=== PATIENT | male | born 1950 | race Two or more races ===

== ENCOUNTER 2024-02-29 14:18 | Inpatient (IN) | payer OTHER ==
[~2024-02-29] VITALS: Ht 162.6 cm; Wt 59.5 kg
[~2024-02-29 14:18] MED LIST: GLYB5TAB8 PO; INSU70IN9 SC
[2024-02-29] MEDS ORDERED: GLIP10TA9 PO (15:53)
[2024-02-29] MEDS ORDERED: SITA100T7 PO (15:53)
[2024-02-29] MEDS ORDERED: METF-370 PO (15:53)
[2024-02-29] MEDS ORDERED: LISI20TA56 PO (15:53)
[2024-02-29 16:00] VITALS: O2SAT 99
[2024-02-29] MEDS: ASPirin 81 mg TAB PO ONE (16:07)
[2024-02-29 16:21] LABS: Basophils # (auto) 0.1 10 ^3/uL (0-0.2); Basophils % (auto) 0.5 % (0.0-2.0); Eosinophils # (auto) 0.3 10 ^3/uL (0-0.8); Eosinophils % (auto) 3.2 % (0.0-7.0); Hematocrit 40.3 % (41.0-53.0); Hemoglobin 13.6 g/dL (13.5-17.5); Lymphocytes % (auto) 20.3 % (10.0-50.0); Mean Corpuscular Hemoglobin 30.3 pg (28.0-32.0); Mean Corpuscular Hgb Conc. 33.7 g/dL (32.0-36.0); Mean Corpuscular Volume 89.9 fL (80.0-100.0); Monocytes # (auto) 0.8 10 ^3/uL (0-1.3); Monocytes % (auto) 8.2 % (0.0-12.0); Neutrophils # (auto) 6.7 10 ^3/uL (1.6-8.6); Neutrophils % (auto) 67.8 % (37.0-80.0); Nucleated Red Blood Cells % 0.1 %; Red Blood Cells 4.49 10^6/uL (4.5-5.90); Red Cell Distribution Width 14.5 % (11.8-14.3); White Blood Cell 9.9 10^3/uL (4.4-10.8)
[2024-02-29 16:46] LABS: Alanine Aminotransferase 19 U/L (7-40); Albumin 4.5 g/dL (3.2-4.8); Alkaline Phosphatase 65 U/L (46-116); Anion Gap 9 (5-15); Aspartate Aminotransferase 12 U/L (13-40); BUN/Creatinine Ratio 16.1 (10.0-20.0); Bilirubin, Total 0.8 mg/dL (0.2-1.0); Blood Urea Nitrogen 24 mg/dL (9-23); Calcium 9.7 mg/dL (8.7-10.4); Carbon Dioxide 24 mmol/L (20-30); Chloride 104 mmol/L (98-107); Magnesium 1.9 mg/dL (1.6-2.6); Potassium 4.9 mmol/L (3.5-5.1); Sodium 137 mmol/L (136-145)
[2024-02-29 16:58] LABS: Glucose 145 mg/dL (74-106)
[2024-02-29] MEDS: CLOPIDOGREL BISULFATE 75 MG TAB PO ONE ×2 (17:18→17:45)
[2024-02-29 17:26] LABS: INR 1.03 (0.9-1.15); Partial Thromboplastin Time 29.3 SEC (24.5-34.5); Prothrombin Time 10.9 sec (9.3-11.8)
[2024-02-29] MEDS ORDERED: HYDROmorphone HCL 2 MG/ML VL/or syr IV PRN (17:45)
[2024-02-29] MEDS ORDERED: ACETAMINOPHEN 325 MG TAB PO PRN (17:45)
[2024-02-29] MEDS: LACTATED RINGER'S 1,000 ML IV ONE (17:45)
[2024-02-29] MEDS ORDERED: DEXTROSE (50%) 50ML SYRG IV PRN (17:45)
[2024-02-29] MEDS ORDERED: ONDANSETRON HCL 4 MG/2 ML VIAL IV PRN (17:45)
[2024-02-29] MEDS ORDERED: DOCUSATE SOD 100 MG CAP PO PRN (17:45)
[2024-02-29] MEDS ORDERED: HYDROcodone-ACET 5/325MG TAB PO PRN (17:45)
[2024-02-29] MEDS: INSULIN 70/30 1unit/0.01ml Susp (100units/ml) SC SCH (18:00)
[2024-02-29 18:10] LABS: Triglycerides 129 mg/dL (< 150)
[2024-02-29 18:11] LABS: LDL Cholesterol 79 mg/dL (< 100)
[2024-02-29 18:12] LABS: Cholesterol 125 mg/dL (< 200); HDL Cholesterol 34 mg/dL (40-59)
[2024-02-29] MEDS: ATORVASTATIN 20 MG TAB PO ONE (18:38)
[2024-02-29 19:37] VITALS: PULSE 86; RESP 14; O2SAT 96
[2024-02-29] MEDS: InsuLIN REG 1unit/0.01ml Soln (100units/ml) SC SCH (22:00)
[2024-02-29] MEDS: SODIUM CHLOR 0.9% PF (SALINE LOCK) 10ML VIAL/SYR IV SCH (22:06)
[2024-02-29] MEDS: ACCU-CHEK COMFORT CURVE STRIP VI SCH (22:12)
[2024-02-29 23:25] VITALS: BP 139/66; PULSE 69; TEMP 98; O2SAT 98
[2024-03-01] VITALS (7 sets, daily range): BP systolic 129–154; BP diastolic 62–81; PULSE 60–83; RESP 18–19; TEMP 97.6–98.7; O2SAT 91–100
[2024-03-01 10:10] LABS: Basophils # (auto) 0.1 10 ^3/uL (0-0.2); Basophils % (auto) 0.8 % (0.0-2.0); Eosinophils # (auto) 0.3 10 ^3/uL (0-0.8); Eosinophils % (auto) 3.2 % (0.0-7.0); Hematocrit 40.1 % (41.0-53.0); Hemoglobin 13.4 g/dL (13.5-17.5); Lymphocytes # (auto) 1.6 10 ^3/uL (0.4-5.4); Lymphocytes % (auto) 17.6 % (10.0-50.0); Mean Corpuscular Hemoglobin 30.1 pg (28.0-32.0); Mean Corpuscular Hgb Conc. 33.4 g/dL (32.0-36.0); Mean Corpuscular Volume 89.9 fL (80.0-100.0); Monocytes # (auto) 0.7 10 ^3/uL (0-1.3); Neutrophils # (auto) 6.3 10 ^3/uL (1.6-8.6); Neutrophils % (auto) 70.4 % (37.0-80.0); Red Blood Cells 4.46 10^6/uL (4.5-5.90); Red Cell Distribution Width 14.4 % (11.8-14.3)
[2024-03-01 10:29] LABS: Anion Gap 5 (5-15); Calcium 9.8 mg/dL (8.7-10.4); Carbon Dioxide 29 mmol/L (20-30); Chloride 102 mmol/L (98-107); Potassium 4.3 mmol/L (3.5-5.1); Sodium 136 mmol/L (136-145)
[2024-03-01] MEDS: ENOXAPARIN SOD 40 MG/0.4 ML SYRINGE SC SCH (10:30)
[2024-03-01] MEDS: ASPirin-EC 81 mg tab PO SCH (10:30)
[2024-03-01 10:35] LABS: Glucose 214 mg/dL (74-106)
[2024-03-01 10:36] LABS: BUN/Creatinine Ratio 15.4 (10.0-20.0); Blood Urea Nitrogen 20 mg/dL (9-23)
[2024-03-01] MEDS ORDERED: CLOP75TA28 PO (18:32)
[2024-03-01] MEDS ORDERED: ATOR20TA PO (18:32)
[2024-03-01] MEDS ORDERED: ASPI-325 PO (18:32)
== END 2024-03-01 16:57 | disposition home or self-care (01) | DRG 683 ==
LOC: ER 14:18 → TELE 17:37 → TELE-WESTW 23:25
PROVIDERS: ADMIT Internal Medicine Pulmonary Disease; ATTEND Internal Medicine Pulmonary Disease
DX: N17.0 Acute kidney failure with tubular necrosis (principal); G45.9 Transient cerebral ischemic attack, unspecified; J84.9 Interstitial pulmonary disease, unspecified; E11.9 Type 2 diabetes mellitus without complications; I10 Essential (primary) hypertension; Z90.49 Acquired absence of other specified parts of digestive tract; Z79.82 Long term (current) use of aspirin
CPT/HCPCS: 36415; 70450; 70545; 70547; 70551; 71045; 80048; 80053; 80061; 82962; 83036; 83735; 83880; 84484; 85025; 85610; 85730; 93005; 93306; 93886; 99291; G0378

== ENCOUNTER 2024-07-06 19:40 | Inpatient (IN) | payer OTHER ==
[~2024-07-06] VITALS: Ht 162.6 cm; Wt 71.0 kg
[~2024-07-06 19:40] MED LIST changes: +ASPI-325 PO; +ATOR20TA PO; +CLOP75TA28 PO; +GLIP10TA9 PO; -GLYB5TAB8 PO; +LISI20TA56 PO; +METF-370 PO; +SITA100T7 PO
--- NOTE | 2024-07-06 20:31 | ED.PDOC ---
SOB-HPI HPI Comments 73-year-old male who came to ER for shortness of breath. Patient does have history of diabetes. States for over a week patient has been having dry productive cough, with progressively worsening shortness of breath. Noted shortness of breath especially when patient is lying in a supine position. Denies any fever. Upon arrival patient was saturating 76% on room air, with a blood pressure 164/78 mm Hg Chief Complaint: Shortness of Breath Time Seen by MD: 20:30 Reviewed notes: Nurses Notes Information Source: Patient, Relative Mode of Arrival: Ambulatory Severity: Moderate Timing: Days Duration: Intermittent Context: At Rest, With Light Exertion PE Risk Factors: None History of: None Prehospital treatment: None Modifying Factors: Nothing Associated Signs and Symptoms: Cough If cough with SOB: Non-Productive Past Medical History PAST MEDICAL HISTORY: DM Surgical History: Cholecystectomy, Tonsillectomy Family History Family History: Reviewed,noncontributory to illness Social History Smoker: Non-Smoker Alcohol: Denies ETOH Use Drugs: Denies Drug Use Lives In: Home Constitutional: denies: chills, diaphoresis, fatigue, fever, malaise, sweats, weakness, others EENTM: denies: blurred vision, double vision, ear bleeding, ear discharge, ear drainage, ear pain, ear ringing, eye pain, eye redness, hearing loss, mouth pain, mouth swelling, nasal discharge, nose bleeding, nose congestion, nose pain, photophobia, tearing, throat pain, throat swelling, voice changes, others Respiratory: reports: cough, orthopnea, SOB at rest, shortness of breath, SOB with excertion; denies: hemoptysis, stridor, wheezing, others Cardiovascular: denies: chest pain, dizzy spells, diaphoresis, Dyspnea on exertion, edema, irregular heart beat, left arm pain, lightheadedness, palpitations, PND, syncope, others Gastrointestinal: denies: abdomen distended, abdominal pain, blood streaked bowels, constipated, diarrhea, dysphagia, difficulty swallowing, hematemesis, melena, nausea, poor appetite, poor fluid intake, rectal bleeding, rectal pain, vomiting, others Genitourinary: denies: burning, dysuria, flank pain, frequency, hematuria, incontinence, penile discharge, penile sore, pain, testicle pain, testicle swelling, urgency, others Neurological: denies: dizziness, fainting, headache, left sided numbness, left sided weakness, numbness, paresthesia, pre-existing deficit, right sided numbness, right sided weakness, seizure, speech problems, tingling, tremors, weakness, others Musculoskeletal: denies: back pain, gout, joint pain, joint swelling, muscle pain, muscle stiffness, neck pain, others Integumetry: denies: bruises, change in color, change in hair/nails, dryness, laceration, lesions, lumps, rash, wounds, others Allergic/Immunocompromised: denies: Difficulty Healing, Frequent Infections, Hives, Itching, others Hematologic/Lymphatic: denies: anemia, blood clots, easy bleeding, easy bruising, swollen glands, others Endocrine: denies: excessive hunger, excessive sweating, excessive thirst, excessive urination, flushing, intolerance to cold, intolerance to heat, unexplained weight gain, unexplained weight loss, others Psychiatric: denies: anxiety, bipolar disorder, depression, hopeless, panic disorder, schizophrenia, sleepless, suicidal, others Physical Exam General Appearance: No Apparent Distress, Normal HEENT: Normal ENT Inspection, Pharynx Normal, TMs Normal Neck: Full Range of Motion, Non-Tender, Normal, Normal Inspection Respiratory: Chest Non-Tender, Lungs Clear, No Accessory Muscle Use, No Respiratory Distress, Normal Breath Sounds Cardiovascular: No Edema, No JVD, No Murmur, No Gallop, Normal Peripheral Pulses, Regular Rate/Rhythm Breast Exam: Deferred Gastrointestinal: No Organomegaly, Non Tender, No Pulsatile Mass, Normal Bowel Sounds, Soft Genitalia: Deferred Pelvic: Deferred Rectal: Deferred Extremities: No calf tenderness, Normal capillary refill, Normal inspection, Normal range of motion, Non-tender, No pedal edema Musculoskeletal : Apperance: Normal Neurologic: Alert, research and development manager II-XII nml as Tested, No Motor Deficits, Normal Affect, Normal Mood, No Sensory Deficits Cerebellar Function: Normal Reflexes: Normal Skin: Dry, Normal Color, Warm Lymphatic: No Adenopathy Was a procedure done? Was a procedure done?: No Differential Dx Differential Diagnosis: Asthma, Bronchitis, CHF, COPD, Myocardial infarction, Panic Attack, Pneumonia, Respiratory Distress, URI, Other (Influenza) X-Ray, Labs, Meds, VS Vital Signs Date Time Temp Pulse Resp B/P (MAP) Pulse Ox O2 Delivery O2 Flow Rate FiO2 07/06/24 19:58 98.0 103 20 164/78 (106) 99 Lab Test 07/06/24 20:21 07/06/24 19:48 Range/Units White Blood Count 8.0 4.4-10.8 10^3/uL Red Blood Count 4.47 L 4.5-5.90 10^6/uL Hemoglobin 13.4 L 13.5-17.5 g/dL Hematocrit 40.6 L 41.0-53.0 % Mean Corpuscular Volume 90.9 80.0-100.0 fL Mean Corpuscular Hemoglobin 30.0 28.0-32.0 pg Mean Corpuscular Hemoglobin Concent 33.0 32.0-36.0 g/dL Red Cell Distribution Width 14.6 H 11.8-14.3 % Platelet Count 164 140-450 10^3/uL Mean Platelet Volume 9.5 6.9-10.8 fL Neutrophils (%) (Auto) 66.3 37.0-80.0 % Lymphocytes (%) (Auto) 19.7 10.0-50.0 % Monocytes (%) (Auto) 9.4 0.0-12.0 % Eosinophils (%) (Auto) 4.0 0.0-7.0 % Basophils (%) (Auto) 0.6 0.0-2.0 % Neutrophils # (Auto) 5.3 1.6-8.6 10 ^3/uL Lymphocytes # (Auto) 1.6 0.4-5.4 10 ^3/uL Monocytes # (Auto) 0.8 0-1.3 10 ^3/uL Eosinophils # (Auto) 0.3 0-0.8 10 ^3/uL Basophils # (Auto) 0 0-0.2 10 ^3/uL Nucleated Red Blood Cells 0.0 % Sodium Level 137 136-145 mmol/L Potassium Level 4.8 3.5-5.1 mmol/L Chloride Level 99 98-107 mmol/L Carbon Dioxide Level 31 20-31 mmol/L Anion Gap 7 5-15 Blood Urea Nitrogen 19 9-23 mg/dL Creatinine 1.52 H 0.700-1.30 mg/dL Glomerular Filtration Rate Calc 47 >90 mL/min BUN/Creatinine Ratio 12.5 10.0-20.0 Serum Glucose 235 H 74-106 mg/dL Calcium Level 10.0 8.7-10.4 mg/dL Troponin I High Sensitivity 4 </=54 ng/L B-Type Natriuretic Peptide 49.29 0-100 pg/mL POC Glucose 222 H 70-106 mg/dl CHEST RADIOGRAPH FINDINGS: Lines and Tubes: None Lungs: Prominent interstitial markings in both lung bases. May represent developing infiltrates. Pleura: No effusion. No pneumothorax. Cardiomediastinal contours: Unremarkable Bones: Unremarkable IMPRESSION: 1. Possible developing bibasilar infiltrates. Left worse than right Time of 1ST Reevaluation: 20:28 Reevaluation 1ST: Unchanged Patient Education/Counseling: Diagnosis, Treatment Family Education/Counseling: Diagnosis, Treatment Departure 1 Departure Time of Disposition: 23:08 (Patient presented with acute shortness of breath concerning for acute on chronic COPD Exacerbation, Pneumonia, ACS, CHF, Pneumothorax. Less likely PE, Dissection. Patient does not appear septic at this time.Data: 1. I ordered and reviewed the result of at least 3 labs in cluding a CBC, BMP, and Troponin. 2. I independently interpreted the following tests: Chest X-ray shows a pneumonia.Risk:This patient has a high risk of morbidity due to further diagnostic testing or treatment and may suffer from respiratory or cardiac etiology . Workup reveals a pneumonia, patient will be started on antibiotics, admitted for further workup and possible expert cons ultation.) Impression: Primary Impression: Pneumonia Qualified Codes: J18.9 - Pneumonia, unspecified organism Additional Impression: Dyspnea Qualified Codes: R06.02 - Shortness of breath Disposition: ADMITTED INPATIENT Admit to: Med Surg Condition: Serious Critical Care Note Critical Care Time?: Yes (35 min-critical care time only) Critical care comment: Hypoxic Authorized and Performed by: Melvi Mullen MD Total critical care time: Approximately 35 minutes Due to a high probability of clinically significant, life threatening deterioration, the patient required my highest level of preparedness to intervene emergently and I personally spent this critical care time directly and personally managing the patient. This critical care time included obtaining a history; examining the patient; pulse oximetry; ordering and review of studies; arranging urgent treatment with development of a management plan; evaluation of patient's response to treatment; frequent reassessment; and, discussions with other providers. This critical care time was performed to assess and manage the high probability of imminent, life-threatening deterioration that could result in multi-organ failure. It was exclusive of separately billable procedures and treating other patients and teaching time. Please see my other sections and the rest of the note for further information on patient assessment and treatment. Stability Stability form required: No Heart Score Heart Score: Heart Score Response (Comments) Value History Moderate Suspicious 1 EKG Normal 0 Age >65 2 Risk Factors 1 or 2 risk factors 1 Troponin Normal limit 0 Total 4 I personally scribed for MELVI MULLEN MD [facility] on 07/06/24 at 20:31. Electronically submitted by Rickey Sanabria ([email or web address]). I personally scribed for MELVI MULLEN MD ([email or web address]) on 07/06/24 at 21:03. Electronically submitted by Rickey Sanabria ([email or web address]). MELVI MULLEN MD Jul 06, 2024 20:31
--- NOTE | 2024-07-06 20:37 | DVH ---
CHEST RADIOGRAPH Indication: sob Technique: Frontal and lateral view of the chest was obtained Comparison: None FINDINGS: Lines and Tubes: None Lungs: Prominent interstitial markings in both lung bases. May represent developing infiltrates. Pleura: No effusion. No pneumothorax. Cardiomediastinal contours: Unremarkable Bones: Unremarkable IMPRESSION: 1. Possible developing bibasilar infiltrates. Left worse than right
[2024-07-06 20:48] LABS: Basophils # (auto) 0 10 ^3/uL (0-0.2); Basophils % (auto) 0.6 % (0.0-2.0); Eosinophils # (auto) 0.3 10 ^3/uL (0-0.8); Hematocrit 40.6 % (41.0-53.0); Hemoglobin 13.4 g/dL (13.5-17.5); Lymphocytes # (auto) 1.6 10 ^3/uL (0.4-5.4); Lymphocytes % (auto) 19.7 % (10.0-50.0); Mean Corpuscular Volume 90.9 fL (80.0-100.0); Monocytes # (auto) 0.8 10 ^3/uL (0-1.3); Monocytes % (auto) 9.4 % (0.0-12.0); Neutrophils # (auto) 5.3 10 ^3/uL (1.6-8.6); Neutrophils % (auto) 66.3 % (37.0-80.0); Platelet Count (auto) 164 10^3/uL (140-450); Red Blood Cells 4.47 10^6/uL (4.5-5.90); Red Cell Distribution Width 14.6 % (11.8-14.3)
[2024-07-06 21:00] LABS: Chloride 99 mmol/L (98-107); Potassium 4.8 mmol/L (3.5-5.1); Sodium 137 mmol/L (136-145)
[2024-07-06 21:01] LABS: Anion Gap 7 (5-15); Carbon Dioxide 31 mmol/L (20-31)
[2024-07-06 21:06] LABS: BUN/Creatinine Ratio 12.5 (10.0-20.0); Blood Urea Nitrogen 19 mg/dL (9-23)
[2024-07-06 21:08] LABS: Glucose 235 mg/dL (74-106)
[2024-07-06] MEDS: VANCOMYCIN 1GM/250ML KIT 200 ML IV ONE (23:15)
[2024-07-07] VITALS (8 sets, daily range): BP systolic 105–153; BP diastolic 68–85; PULSE 74–98; RESP 16–22; TEMP 97.5–98.8; O2SAT 96–97
[2024-07-07] MEDS: AZITHROMYCIN 250 MG TAB PO ONE (00:38)
[2024-07-07] MEDS: CEFEPIME 2GM/50ML NS 50 ML IV ONE (02:14)
[2024-07-07 02:57] LABS: COVID19 ANTIGEN SOFIA FIA NEGATIVE (NEGATIVE)
[2024-07-07 02:58] LABS: Rapid Influenza A Negative (Negative); Rapid Influenza B Negative (Negative)
[2024-07-07] MEDS ORDERED: ACETAMINOPHEN 325 MG TAB PO PRN (03:30)
[2024-07-07] MEDS ORDERED: DEXTROSE (50%) 50ML SYRG IV PRN (03:30)
[2024-07-07] MEDS ORDERED: NITROGLYCERIN 0.4 MG SL TAB SL PRN (03:30)
[2024-07-07] MEDS ORDERED: DOCUSATE SOD 100 MG CAP PO PRN (03:30)
[2024-07-07] MEDS ORDERED: HYDROcodone-ACET 5/325MG TAB PO PRN (03:30)
[2024-07-07] MEDS ORDERED: ONDANSETRON HCL 4 MG/2 ML VIAL IV PRN (03:30)
[2024-07-07] MEDS ORDERED: MORPHINE SULFATE INJ 2 MG/ml SYRG IV PRN (03:30)
[2024-07-07] MEDS: SODIUM CHLORIDE 0.9% 1,000 ML IV SCH (03:40)
--- NOTE | 2024-07-07 03:44 | DVHHP2 ---
History of Present Illness Reason for Visit: Pneumonia, unspecified organism History of Present Illness The patient is a 73-year-old male with past medical history of diabetes, hypertension, and hyperlipidemia who presented to [facility] ED with complaint of shortness of breaths. Patient reports symptoms progressively get worse with productive cough, progressive shortness of breath on exertion,, when ambulating, getting worse that prompted this visit. Patient was seen and evaluated in the ED, laboratory data shows WBC 8.0, platelets 164, sodium 137, potassium 4.8, BUN 19, creatinine 1.52, glucose 235, troponin 4, BNP 49.29, blood pressure 155/84, heart rate 86, temperature 98.3 F, O2 saturation 98% on oxygen. Chest x-ray revealing developing bibasilar infiltrates, left worse than right. Patient was started on IV antibiotic regimen azithromycin, please see medication orders section in the computer. On my assessment, patient denied chest pain, no headache, no dizziness, no diaphoresis, no abdominal pain, no diarrhea, no nausea, no vomiting, no fever, no chills. Patient was admitted for further evaluation and medical management. Past Medical History DM, hypertension, hyperlipidemia Past Surgical History Cholecystectomy, Tonsillectomy Family History Reviewed, noncontributory to the management of this case. Past Social History The patient lives at home, denies smoking, alcohol or illicit drugs abuse. Review of Systems Constitutional: No: Fever, Chills, Sweats, Weakness, Malaise, Other Eyes: No: Pain, Vision change, Conjunctivae inflammation, Eyelid inflammation, Other, Redness ENT: No: Ear pain, Ear discharge, Nose pain, Nose discharge, Nose congestion, Mouth pain, Mouth swelling, Throat pain, Throat swelling, Other Respiratory: Cough, Shortness of breath, SOB with excertion, Other (SOB at rest.); No: Dry, Wheezing, Hemoptysis, Pleuritic Pain, Sputum, Wheezing Cardiovascular: Other (Dyspnea); No: Chest Pain, Palpitations, Orthopnea, Paroxysmal Noc. Dyspnea, Edema, Lt Headedness Gastrointestinal: No: Nausea, Vomiting, Abdominal Pain, Diarrhea, Constipation, Melena, Hematochezia, Other Genitourinary: No Dysuria, No Frequency, No Incontinence, No Hematuria, No Retention, No Other Musculoskeletal: No: other, neck pain, shoulder pain, arm pain, back pain, hand pain, leg pain, foot pain Skin: No: Rash, Lesions, Jaundice, Bruising, Other Neurological: No: Weakness, Numbness, Incoordination, Change in speech, Confusion, Seizures, Other Allergies: Coded Allergies: NO KNOWN ALLERGIES (Unverified , 10/21/10) Medications Current Medications Medications Dose Ordered Sig/Raghu Route Start Time Stop Time Status Last Admin Dose Admin Azithromycin 250 ml @ 125 mls/hr DAILY IV 07/07/24 10:00 UNV Exam Vital Signs Vital Signs Date Time Temp Pulse Resp B/P (MAP) Pulse Ox O2 Delivery O2 Flow Rate FiO2 07/07/24 01:55 Nasal Cannula* 2 28 07/07/24 01:05 98.3 86 20 155/84 (107) 98 98.3 General Appearance: Alert, Oriented X3, Cooperative, No acute distress HEENT: Atraumatic, PERRLA, EOMI, Mucous membr. moist/pink Respiratory: Normal air movement, Other (Diminished breath sounds) Cardiovascular: Regular rate, Normal S1, Normal S2, No murmurs Abdominal: Normal bowel sounds, Soft, No tenderness, No hepatospenomegaly, No masses Extremities: No clubbing, No cyanosis, No edema, Normal pulses, No tenderness/swelling Skin: No rashes, No breakdown, No significant lesion Neuro: Normal gait, Normal speech, Strength at 5/5 X4 ext, Normal tone, Sensation intact, Cranial nerves 3-12 NL, Reflexes 2+ Psych/Mental Status: Mental status NL, Mood NL Labs/Xrays Labs Test 07/07/24 01:06 07/07/24 00:46 07/06/24 20:21 07/06/24 19:48 Range/Units Troponin I High Sensitivity 5 </=54 ng/L Influenza Type A Antigen Negative Negative Influenza Type B Antigen Negative Negative SARS-CoV-2 Antigen (Rapid) Negative NEGATIVE White Blood Count 8.0 4.4-10.8 10^3/uL Red Blood Count 4.47 L 4.5-5.90 10^6/uL Hemoglobin 13.4 L 13.5-17.5 g/dL Hematocrit 40.6 L 41.0-53.0 % Mean Corpuscular Volume 90.9 80.0-100.0 fL Mean Corpuscular Hemoglobin 30.0 28.0-32.0 pg Mean Corpuscular Hemoglobin Concent 33.0 32.0-36.0 g/dL Red Cell Distribution Width 14.6 H 11.8-14.3 % Platelet Count 164 140-450 10^3/uL Mean Platelet Volume 9.5 6.9-10.8 fL Neutrophils (%) (Auto) 66.3 37.0-80.0 % Lymphocytes (%) (Auto) 19.7 10.0-50.0 % Monocytes (%) (Auto) 9.4 0.0-12.0 % Eosinophils (%) (Auto) 4.0 0.0-7.0 % Basophils (%) (Auto) 0.6 0.0-2.0 % Neutrophils # (Auto) 5.3 1.6-8.6 10 ^3/uL Lymphocytes # (Auto) 1.6 0.4-5.4 10 ^3/uL Monocytes # (Auto) 0.8 0-1.3 10 ^3/uL Eosinophils # (Auto) 0.3 0-0.8 10 ^3/uL Basophils # (Auto) 0 0-0.2 10 ^3/uL Nucleated Red Blood Cells 0.0 % Sodium Level 137 136-145 mmol/L Potassium Level 4.8 3.5-5.1 mmol/L Chloride Level 99 98-107 mmol/L Carbon Dioxide Level 31 20-31 mmol/L Anion Gap 7 5-15 Blood Urea Nitrogen 19 9-23 mg/dL Creatinine 1.52 H 0.700-1.30 mg/dL Glomerular Filtration Rate Calc 47 >90 mL/min BUN/Creatinine Ratio 12.5 10.0-20.0 Serum Glucose 235 H 74-106 mg/dL Calcium Level 10.0 8.7-10.4 mg/dL B-Type Natriuretic Peptide 49.29 0-100 pg/mL POC Glucose 222 H 70-106 mg/dl PATIENT: HEATHER ALAN ACCT: [id number] UNIT: [id number] : 1950 LOC: ER ROOM / BED: / AGE / SEX: 73 / M ADM STATUS: REG ER SERVICE 53 ORDERING PHYSICIAN: MELVI MARR MD PROCEDURE(s): CXR2 - CHEST TWO VIEWS ROUTINE REASON: sob ORDER NUMBER(s): [id number], ACCESSION NUMBER(s): [id number] CHEST RADIOGRAPH Indication: sob Technique: Frontal and lateral view of the chest was obtained Comparison: None FINDINGS: Lines and Tubes: None Lungs: Prominent interstitial markings in both lung bases. May represent developing infiltrates. Pleura: No effusion. No pneumothorax. Cardiomediastinal contours: Unremarkable Bones: Unremarkable IMPRESSION: 1. Possible developing bibasilar infiltrates. Left worse than right Assessment/Plan Assessment/Plan Shortness of breath Dyspnea Pneumonia, unspecified organism Diabetes mellitus with hyperglycemia Plan 1. Admit to telemetry unit 2. Breathing treatment 3. Pain control management 4. IV antibiotic management 5. Management of fluids and electrolytes 6. Consultation for hospitalist 7. Diagnostic test chest x-ray 8. DVT prophylaxis-on aspirin 9. Repeat labs CBC, CMP in a.m. 10. Home medication reviewed and reconciled 11. Continue with current medical management 12. Treatment plan discussed with patient and RN. Patient verbalized understanding. Plan discussed with: Patient, Other (RN) My Orders Orders - ANDRE PARRY DNP Procedure Category Date Status Time Complete Blood Count LAB 07/07/24 Transmitted 04:00 Comprehensive LAB 07/07/24 Transmitted Metabolic Panel 04:00 Azithromycin 500mg/ PHA 07/07/24 Logged 250ml (Zithromax 50 10:00 Ceftriaxone Ivpb PHA 07/07/24 Transmitted Rocephin 09:00 Aspirin Tablet PHA 07/07/24 Transmitted 10:00 Clopidogrel Bisulfate PHA 07/07/24 Transmitted (Plavix) 10:00 Atorvastatin (Lipitor) PHA 07/07/24 Transmitted 22:00 Consistent DIET 07/07/24 Transmitted Carb(Ccho)Diabetes Breakfast Glucose Blood PHA 07/07/24 Transmitted (Accu-Chek Comfort 07:00 Bedtime Insulin Scale PHA 07/07/24 Transmitted 22:00 Moderate Insulin Ss PHA 07/07/24 Transmitted 07:00 Dextrose 50% Syringe PHA 07/07/24 Transmitted 03:30 Admit ADMIT 07/07/24 Transmitted 03:22 Allergies DOTTY 07/07/24 Transmitted 03:22 Code Status CODE 07/07/24 Transmitted 03:22 0.9% Ns 1000 Ml PHA 07/07/24 Transmitted 03:30 Oxygen Per Hour RT 07/07/24 Transmitted 03:22 Hydrocodone-Acet PHA 07/07/24 Transmitted 5/325mg Tab ([place] 03:30 Ondansetron Hcl PHA 07/07/24 Transmitted (Zofran) 03:30 Docusate Sodium [facility] 07/07/24 Transmitted Capsule (Colace 03:30 Complete Blood Count LAB 07/08/24 Verified 04:00 Comprehensive LAB 07/08/24 Verified Metabolic Panel 04:00 Condition: Serious [facility] 07/07/24 Transmitted 03:22 Acetaminophen Tablet [facility] 07/07/24 Transmitted (Tylenol Tablet) 03:30 Bedrest With Bathroom [facility] 07/07/24 Transmitted Privileg 03:22 Sequential [facility] 07/07/24 Transmitted Compression Device Nitroglycerin [facility] 07/07/24 Transmitted Sublingual (Ntrostat 03:30 Morphine Sulfate [facility] 07/07/24 Transmitted Injection 03:30 Notify Md Of Changes [facility] 07/07/24 Transmitted From Base 03:22 Administration Assistant For [facility] 07/07/24 Transmitted 24 Hours 03:22 Emergency Dysrhythmia [facility] 07/07/24 Transmitted Protocol 03:22 Rhythm Strips Once [facility] 07/07/24 Transmitted Every Shift 03:22 Oxygen By Nasal 07/07/24 Transmitted Cannula 03:22 Problem List: (1) Shortness of breath (2) Dyspnea (3) Pneumonia, unspecified organism (4) Diabetes mellitus with hyperglycemia Date of Service: Jul 07, 2024 Billing Provider: ANDRE PARRY DNP Common Visit Codes: [id number] INP/OBS CARE (HIGH) ANDRE PARRY DNP Jul 07, 2024 03:44
[2024-07-07 05:14] LABS: Basophils # (auto) 0 10 ^3/uL (0-0.2); Basophils % (auto) 0.4 % (0.0-2.0); Eosinophils # (auto) 0.3 10 ^3/uL (0-0.8); Eosinophils % (auto) 3.6 % (0.0-7.0); Hematocrit 36.9 % (41.0-53.0); Hemoglobin 12.2 g/dL (13.5-17.5); Lymphocytes # (auto) 1.8 10 ^3/uL (0.4-5.4); Lymphocytes % (auto) 20.9 % (10.0-50.0); Mean Corpuscular Hemoglobin 29.9 pg (28.0-32.0); Mean Corpuscular Volume 90.4 fL (80.0-100.0); Monocytes # (auto) 0.7 10 ^3/uL (0-1.3); Monocytes % (auto) 8.4 % (0.0-12.0); Neutrophils # (auto) 5.7 10 ^3/uL (1.6-8.6); Neutrophils % (auto) 66.7 % (37.0-80.0); Nucleated Red Blood Cells % 0.1 %; Platelet Count (auto) 142 10^3/uL (140-450); Red Blood Cells 4.08 10^6/uL (4.5-5.90); Red Cell Distribution Width 14.3 % (11.8-14.3); White Blood Cell 8.6 10^3/uL (4.4-10.8)
[2024-07-07 06:09] LABS: Alanine Aminotransferase 19 U/L (7-40); Alkaline Phosphatase 50 U/L (46-116); Anion Gap 6 (5-15); Aspartate Aminotransferase 17 U/L (13-40); BUN/Creatinine Ratio 12.2 (10.0-20.0); Blood Urea Nitrogen 17 mg/dL (9-23); Calcium 9.4 mg/dL (8.7-10.4); Carbon Dioxide 28 mmol/L (20-31); Chloride 102 mmol/L (98-107); Potassium 4.4 mmol/L (3.5-5.1); Sodium 136 mmol/L (136-145)
[2024-07-07 06:10] LABS: Albumin 3.8 g/dL (3.2-4.8); Bilirubin, Total 0.8 mg/dL (0.2-1.0); Total Protein 6.2 g/dL (5.7-8.2)
[2024-07-07 06:11] LABS: Glucose 178 mg/dL (74-106)
[2024-07-07] MEDS: ACCU-CHEK COMFORT CURVE STRIP VI SCH (06:28)
[2024-07-07] MEDS: InsuLIN REG 1unit/0.01ml Soln (100units/ml) SC SCH ×2 (06:28→21:09)
[2024-07-07] MEDS: ASPirin 81 mg TAB PO SCH (08:53)
[2024-07-07] MEDS: CLOPIDOGREL BISULFATE 75 MG TAB PO SCH (08:53)
--- NOTE | 2024-07-07 13:05 | DVHPN2 ---
Subjective 73-year-old male admitted for pneumonia Changes from previous H/P or p: Changes Eyes: No Pain, No Vision change, No Conjunctivae inflammation, No Eyelid inflammation, No Other, No Redness ENT: No Ear pain, No Ear discharge, No Nose pain, No Nose discharge, No Nose congestion, No Mouth pain, No Mouth swelling, No Throat pain, No Throat swelling, No Other Cardiovascular: No Chest Pain, No Palpitations, No Orthopnea, No Paroxysmal Noc. Dyspnea, No Edema, No Lt Headedness; Other (Dyspnea) Respiratory: Cough; No Dry; Shortness of breath, SOB with excertion; No Wheezing, No Hemoptysis, No Pleuritic Pain, No Sputum; Other (SOB at rest.) Gastrointestinal: No Nausea, No Vomiting, No Abdominal Pain, No Diarrhea, No Constipation, No Melena, No Hematochezia, No Other Genitourinary: No Dysuria, No Frequency, No Incontinence, No Hematuria, No Retention, No Other Musculoskeletal: No other, No neck pain, No shoulder pain, No arm pain, No back pain, No hand pain, No leg pain, No foot pain Skin: No Rash, No Lesions, No Jaundice, No Bruising, No Other Objective Vitals Vital Signs Date Time Temp Pulse Resp B/P (MAP) Pulse Ox O2 Delivery O2 Flow Rate FiO2 07/07/24 09:48 98.8 86 18 105/68 (80) 96 98.8 07/07/24 08:00 Room Air* 0 21 Intake/Output Intake and Output 07/07/24 07:00 Intake Total 260 ml Output Total 600 ml Balance -340 ml IV Total 260 ml Output Urine Total 600 ml General Appearance: Alert, Oriented X3, Cooperative Lungs: Other (Bilateral rhonchi) Cardiovascular: Regular rate, Normal S1, Normal S2 Abdomen: Normal bowel sounds, Soft, No tenderness Extremities: No edema Medications Current Medications Medications Dose Ordered Sig/Raghu Route Start Time Stop Time Status Last Admin Dose Admin Azithromycin 250 ml @ 250 mls/hr Q24H IV 07/07/24 21:00 Ceftriaxone Sodium 50 ml @ 100 mls/hr Q24H IV 07/07/24 21:00 Aspirin 81 mg DAILY PO 07/07/24 10:00 07/07/24 08:53 81 MG Clopidogrel Bisulfate 75 mg DAILY PO 07/07/24 10:00 07/07/24 08:53 75 MG Atorvastatin Calcium 20 mg HS PO 07/07/24 22:00 Diagnostic Test (Pha) 1 strip ACHS 07/07/24 07:00 07/07/24 11:46 1 STRIP Insulin Human Regular HS SC 07/07/24 22:00 Insulin Human Regular AC SC 07/07/24 07:00 07/07/24 11:45 6 UNITS Dextrose 50 ml UD PRN IV 07/07/24 03:30 Sodium Chloride 1,000 ml @ 60 mls/hr [id number] IV 07/07/24 03:30 07/07/24 03:40 60 MLS/HR Acetaminophen/ Hydrocodone Bitart 1 tab Q4HP PRN PO 07/07/24 03:30 Ondansetron HCl 4 mg Q4HP PRN IV 07/07/24 03:30 Docusate Sodium 100 mg BIDPRN PRN PO 07/07/24 03:30 Acetaminophen 650 mg Q6HP PRN PO 07/07/24 03:30 Nitroglycerin 0.4 mg Q5MINP PRN SL 07/07/24 03:30 Morphine Sulfate 2 mg Q30M PRN IV 07/07/24 03:30 Laboratory Results Laboratory Tests 07/07/24 05:01 Chemistry Test 07/06/24 20:21 07/07/24 05:01 Calcium Level 10.0 mg/dL (8.7-10.4) 9.4 mg/dL (8.7-10.4) Albumin 3.8 g/dL (3.2-4.8) Total Protein 6.2 g/dL (5.7-8.2) Cardiac Markers Test 07/06/24 20:21 B-Type Natriuretic Peptide 49.29 pg/mL (0-100) LFT Test 07/07/24 05:01 Alanine Aminotransferase (ALT) 19 U/L (7-40) Alkaline Phosphatase 50 U/L (46-116) Aspartate Amino Transferase (AST) 17 U/L (13-40) Total Bilirubin 0.8 mg/dL (0.2-1.0) Assessment/Plan Assessment/Plan Bilateral pneumonia Acute hypoxic respiratory failure due to pneumonia Type 2 diabetes Hypertension Dyslipidemia Chronic kidney disease 07/07/2024: IV antibiotics Zithromax and Rocephin Resume the home medications including aspirin and Plavix Accu-Cheks Physical therapy Oxygen as needed Full code Advance directives discussed for 18 minutes Plan discussed with: Patient Date of Service: Jul 07, 2024 Billing Provider: ANIA HURST MD Common Visit Codes: [id number] INP/OBS CARE(HIGH) Secondary Visit Codes: [id number] CARE PLAN 30 MINUTES ANIA HURST MD Jul 07, 2024 13:05
[2024-07-07] MEDS: AZITHROMYCIN 500MG/ 250ML 250 ML IV SCH (20:33)
[2024-07-07] MEDS: cefTRIAXone 1GM/50ML D5W 50 ML IV SCH (20:35)
[2024-07-07] MEDS: ATORVASTATIN 20 MG TAB PO SCH (20:36)
[2024-07-08] VITALS (8 sets, daily range): BP systolic 105–159; BP diastolic 49–76; PULSE 66–84; RESP 16–20; TEMP 97.7–98.2; O2SAT 91–99
[2024-07-08 07:11] LABS: Basophils # (auto) 0 10 ^3/uL (0-0.2); Basophils % (auto) 0.4 % (0.0-2.0); Eosinophils # (auto) 0.5 10 ^3/uL (0-0.8); Eosinophils % (auto) 4.7 % (0.0-7.0); Hematocrit 38.9 % (41.0-53.0); Lymphocytes # (auto) 1.8 10 ^3/uL (0.4-5.4); Lymphocytes % (auto) 18.3 % (10.0-50.0); Mean Corpuscular Hemoglobin 30.5 pg (28.0-32.0); Mean Corpuscular Hgb Conc. 33.4 g/dL (32.0-36.0); Mean Corpuscular Volume 91.3 fL (80.0-100.0); Monocytes # (auto) 0.8 10 ^3/uL (0-1.3); Monocytes % (auto) 8.7 % (0.0-12.0); Neutrophils # (auto) 6.5 10 ^3/uL (1.6-8.6); Neutrophils % (auto) 67.9 % (37.0-80.0); Platelet Count (auto) 153 10^3/uL (140-450); Red Blood Cells 4.26 10^6/uL (4.5-5.90); Red Cell Distribution Width 14.4 % (11.8-14.3); White Blood Cell 9.7 10^3/uL (4.4-10.8)
[2024-07-08 07:19] LABS: Alanine Aminotransferase 22 U/L (7-40); Albumin 4.1 g/dL (3.2-4.8); Alkaline Phosphatase 50 U/L (46-116); Anion Gap 7 (5-15); Aspartate Aminotransferase 20 U/L (13-40); BUN/Creatinine Ratio 11.7 (10.0-20.0); Blood Urea Nitrogen 17 mg/dL (9-23); Calcium 10.2 mg/dL (8.7-10.4); Carbon Dioxide 27 mmol/L (20-31); Chloride 104 mmol/L (98-107); Potassium 4.7 mmol/L (3.5-5.1); Sodium 138 mmol/L (136-145)
[2024-07-08 07:20] LABS: Bilirubin, Total 1.1 mg/dL (0.2-1.0); Total Protein 6.9 g/dL (5.7-8.2)
[2024-07-08 07:36] LABS: Glucose 155 mg/dL (74-106)
--- NOTE | 2024-07-08 11:55 | DVHPN2 ---
Subjective Better Less SOB Changes from previous H/P or p: Changes Eyes: No Pain, No Vision change, No Conjunctivae inflammation, No Eyelid inflammation, No Other, No Redness ENT: No Ear pain, No Ear discharge, No Nose pain, No Nose discharge, No Nose congestion, No Mouth pain, No Mouth swelling, No Throat pain, No Throat swelling, No Other Cardiovascular: No Chest Pain, No Palpitations, No Orthopnea, No Paroxysmal Noc. Dyspnea, No Edema, No Lt Headedness; Other (Dyspnea) Respiratory: Cough; No Dry; Shortness of breath, SOB with excertion; No Wheezing, No Hemoptysis, No Pleuritic Pain, No Sputum; Other (SOB at rest.) Gastrointestinal: No Nausea, No Vomiting, No Abdominal Pain, No Diarrhea, No Constipation, No Melena, No Hematochezia, No Other Genitourinary: No Dysuria, No Frequency, No Incontinence, No Hematuria, No Retention, No Other Musculoskeletal: No other, No neck pain, No shoulder pain, No arm pain, No back pain, No hand pain, No leg pain, No foot pain Skin: No Rash, No Lesions, No Jaundice, No Bruising, No Other Objective Vitals Vital Signs Date Time Temp Pulse Resp B/P (MAP) Pulse Ox O2 Delivery O2 Flow Rate FiO2 07/08/24 09:00 97.7 83 16 131/59 (83) 99 97.7 07/08/24 08:00 Room Air* 0 21 Intake/Output Intake and Output 07/08/24 07:00 Intake Total 4041 ml Output Total 750 ml Balance 3291 ml Intake Oral 1656 ml IV Total 2385 ml Output Urine Total 750 ml # Bowel Movements 2 General Appearance: Alert, Oriented X3, Cooperative Lungs: Other (Bilateral rhonchi) Cardiovascular: Regular rate, Normal S1, Normal S2 Abdomen: Normal bowel sounds, Soft, No tenderness Extremities: No edema Medications Current Medications Medications Dose Ordered Sig/Raghu Route Start Time Stop Time Status Last Admin Dose Admin Azithromycin 250 ml @ 250 mls/hr Q24H IV 07/07/24 21:00 07/07/24 20:33 250 MLS/HR Ceftriaxone Sodium 50 ml @ 100 mls/hr Q24H IV 07/07/24 21:00 07/07/24 20:35 100 MLS/HR Aspirin 81 mg DAILY PO 07/07/24 10:00 07/08/24 09:36 81 MG Clopidogrel Bisulfate 75 mg DAILY PO 07/07/24 10:00 07/08/24 09:36 75 MG Atorvastatin Calcium 20 mg HS PO 07/07/24 22:00 07/07/24 20:36 20 MG Diagnostic Test (Pha) 1 strip ACHS 07/07/24 07:00 07/08/24 11:15 1 STRIP Insulin Human Regular HS SC 07/07/24 22:00 07/07/24 21:09 4 UNITS Insulin Human Regular AC SC 07/07/24 07:00 07/08/24 06:04 2 UNITS Dextrose 50 ml UD PRN IV 07/07/24 03:30 Acetaminophen/ Hydrocodone Bitart 1 tab Q4HP PRN PO 07/07/24 03:30 Ondansetron HCl 4 mg Q4HP PRN IV 07/07/24 03:30 Docusate Sodium 100 mg BIDPRN PRN PO 07/07/24 03:30 Acetaminophen 650 mg Q6HP PRN PO 07/07/24 03:30 Nitroglycerin 0.4 mg Q5MINP PRN SL 07/07/24 03:30 Morphine Sulfate 2 mg Q30M PRN IV 07/07/24 03:30 Laboratory Results Laboratory Tests 07/08/24 05:51 Chemistry Test 07/08/24 05:51 Albumin 4.1 g/dL (3.2-4.8) Calcium Level 10.2 mg/dL (8.7-10.4) Total Protein 6.9 g/dL (5.7-8.2) LFT Test 07/08/24 05:51 Alanine Aminotransferase (ALT) 22 U/L (7-40) Alkaline Phosphatase 50 U/L (46-116) Aspartate Amino Transferase (AST) 20 U/L (13-40) Total Bilirubin 1.1 mg/dL (0.2-1.0) H Assessment/Plan Assessment/Plan Bilateral pneumonia Acute hypoxic respiratory failure due to pneumonia Type 2 diabetes Hypertension Dyslipidemia Chronic kidney disease 07/07/2024: IV antibiotics Zithromax and Rocephin Resume the home medications including aspirin and Plavix Accu-Cheks Physical therapy Oxygen as needed Full code Advance directives discussed for 18 minutes 07/08/24: Continue IV antibiotics Oxygen as needed Continue the current management Keep the patient in the hospital 1 more day Plan discussed with: Patient, Son My Orders Orders - ANIA HURST MD Procedure Category Date Status Time Pt Request For Service PT 07/07/24 Logged 13:02 Date of Service: Jul 08, 2024 Billing Provider: ANIA HURST MD Common Visit Codes: [id number] INP/OBS CARE(HIGH) ANIA HURST MD Jul 08, 2024 11:55
[2024-07-09] VITALS (8 sets, daily range): BP systolic 129–150; BP diastolic 67–91; PULSE 51–96; RESP 16–19; TEMP 97.5–98.5; O2SAT 96–100
[2024-07-09] MEDS: FUROSEMIDE 40 MG/4 ML VIAL IV ONE (09:58)
--- NOTE | 2024-07-09 10:46 | DVHINCON2 ---
Date of service: Jul 09, 2024 Referring Physician Reason for Consultation Acute kidney injury History of Present Illness Patient is a 73-year-old male with past medical history of diabetes mellitus, hypertension and hyperlipidemia is admitted for progressive shortness of breath and cough. On admission patient found to have elevated BUN creatinine nephrology is consulted for acute kidney injury Past Medical History Diabetes mellitus, hypertension Past Surgical History , hyperlipidemia Allergies: Coded Allergies: NO KNOWN ALLERGIES (Unverified , 10/21/10) Home Meds Reported Medications Metformin Hydrochloride (Metformin Hcl) 500 Mg Tab, 500 MG PO BIDWM, MG 02/29/24 Glipizide (Glipizide) 10 Mg Tab, 10 MG PO BID, MG 02/29/24 Sitagliptin Phosphate (Januvia) 100 Mg Tab, 100 MG PO DAILY, TAB 02/29/24 Current Medications Current Medications Medications (Trade) Dose Ordered Sig/Raghu Route PRN Reason Start Time Stop Time Status Last Admin Furosemide (Lasix Injection) 40 mg BIDD IV 07/09/24 18:00 Family History: Diabetes mellitus G8 MOTHER, G8 FATHER, Review of Systems All 12 item review of systems reviewed with the patient nonsignificant except what is mentioned in the history of present illness H&P Exam Vital Signs/I&O Vital Sign Date Time Temp Pulse Resp B/P (MAP) Pulse Ox O2 Delivery O2 Flow Rate FiO2 07/09/24 09:58 137/65 07/09/24 08:54 98.3 80 16 98 98.3 07/08/24 20:00 Room Air* 0 21 Intake and Output 07/08/24 07/09/24 19:00 07:00 Intake Total 1238 ml 1258 ml Balance 1238 ml 1258 ml Intake Oral 1238 ml 958 ml IV Total 300 ml # Voids 6 2 Physical Exam Patient up in bed O2 nasal cannula Lungs clear to auscultation bilaterally Cardiac exam regular rate and rhythm GI soft nontender normal Extremity 1+ edema bilaterally Neuro nonfocal Labs/Diagnostic Data Labs/Diagnostic Data Laboratory Tests Test 07/09/24 05:36 07/08/24 20:55 07/08/24 17:33 07/08/24 11:13 Range/Units POC Glucose 155 H 284 H 160 H 248 H 70-106 mg/dl Test 07/08/24 05:51 07/08/24 05:30 07/07/24 20:35 07/07/24 16:39 Range/Units White Blood Count 9.7 4.4-10.8 10^3/uL Red Blood Count 4.26 L 4.5-5.90 10^6/uL Hemoglobin 13.0 L 13.5-17.5 g/dL Hematocrit 38.9 L 41.0-53.0 % Mean Corpuscular Volume 91.3 80.0-100.0 fL Mean Corpuscular Hemoglobin 30.5 28.0-32.0 pg Mean Corpuscular Hemoglobin Concent 33.4 32.0-36.0 g/dL Red Cell Distribution Width 14.4 H 11.8-14.3 % Platelet Count 153 140-450 10^3/uL Mean Platelet Volume 9.7 6.9-10.8 fL Neutrophils (%) (Auto) 67.9 37.0-80.0 % Lymphocytes (%) (Auto) 18.3 10.0-50.0 % Monocytes (%) (Auto) 8.7 0.0-12.0 % Eosinophils (%) (Auto) 4.7 0.0-7.0 % Basophils (%) (Auto) 0.4 0.0-2.0 % Neutrophils # (Auto) 6.5 1.6-8.6 10 ^3/uL Lymphocytes # (Auto) 1.8 0.4-5.4 10 ^3/uL Monocytes # (Auto) 0.8 0-1.3 10 ^3/uL Eosinophils # (Auto) 0.5 0-0.8 10 ^3/uL Basophils # (Auto) 0 0-0.2 10 ^3/uL Nucleated Red Blood Cells 0.0 % Sodium Level 138 136-145 mmol/L Potassium Level 4.7 3.5-5.1 mmol/L Chloride Level 104 98-107 mmol/L Carbon Dioxide Level 27 20-31 mmol/L Anion Gap 7 5-15 Blood Urea Nitrogen 17 9-23 mg/dL Creatinine 1.45 H 0.700-1.30 mg/dL Glomerular Filtration Rate Calc 50 >90 mL/min BUN/Creatinine Ratio 11.7 10.0-20.0 Serum Glucose 155 H 74-106 mg/dL Calcium Level 10.2 8.7-10.4 mg/dL Total Bilirubin 1.1 H 0.2-1.0 mg/dL Aspartate Amino Transferase (AST) 20 13-40 U/L Alanine Aminotransferase (ALT) 22 7-40 U/L Alkaline Phosphatase 50 46-116 U/L Total Protein 6.9 5.7-8.2 g/dL Albumin 4.1 3.2-4.8 g/dL POC Glucose 154 H 248 H 139 H 70-106 mg/dl Test 07/07/24 11:25 07/07/24 06:25 07/07/24 05:01 07/07/24 01:06 Range/Units POC Glucose 201 H 157 H 70-106 mg/dl White Blood Count 8.6 4.4-10.8 10^3/uL Red Blood Count 4.08 L 4.5-5.90 10^6/uL Hemoglobin 12.2 L 13.5-17.5 g/dL Hematocrit 36.9 L 41.0-53.0 % Mean Corpuscular Volume 90.4 80.0-100.0 fL Mean Corpuscular Hemoglobin 29.9 28.0-32.0 pg Mean Corpuscular Hemoglobin Concent 33.0 32.0-36.0 g/dL Red Cell Distribution Width 14.3 11.8-14.3 % Platelet Count 142 140-450 10^3/uL Mean Platelet Volume 9.5 6.9-10.8 fL Neutrophils (%) (Auto) 66.7 37.0-80.0 % Lymphocytes (%) (Auto) 20.9 10.0-50.0 % Monocytes (%) (Auto) 8.4 0.0-12.0 % Eosinophils (%) (Auto) 3.6 0.0-7.0 % Basophils (%) (Auto) 0.4 0.0-2.0 % Neutrophils # (Auto) 5.7 1.6-8.6 10 ^3/uL Lymphocytes # (Auto) 1.8 0.4-5.4 10 ^3/uL Monocytes # (Auto) 0.7 0-1.3 10 ^3/uL Eosinophils # (Auto) 0.3 0-0.8 10 ^3/uL Basophils # (Auto) 0 0-0.2 10 ^3/uL Nucleated Red Blood Cells 0.1 % Sodium Level 136 136-145 mmol/L Potassium Level 4.4 3.5-5.1 mmol/L Chloride Level 102 98-107 mmol/L Carbon Dioxide Level 28 20-31 mmol/L Anion Gap 6 5-15 Blood Urea Nitrogen 17 9-23 mg/dL Creatinine 1.39 H 0.700-1.30 mg/dL Glomerular Filtration Rate Calc 53 >90 mL/min BUN/Creatinine Ratio 12.2 10.0-20.0 Serum Glucose 178 H 74-106 mg/dL Calcium Level 9.4 8.7-10.4 mg/dL Total Bilirubin 0.8 0.2-1.0 mg/dL Aspartate Amino Transferase (AST) 17 13-40 U/L Alanine Aminotransferase (ALT) 19 7-40 U/L Alkaline Phosphatase 50 46-116 U/L Total Protein 6.2 5.7-8.2 g/dL Albumin 3.8 3.2-4.8 g/dL Troponin I High Sensitivity 5 </=54 ng/L Test 07/07/24 00:46 07/06/24 23:08 07/06/24 20:21 07/06/24 19:48 Range/Units Influenza Type A Antigen Negative Negative Influenza Type B Antigen Negative Negative SARS-CoV-2 Antigen (Rapid) Negative NEGATIVE Troponin I High Sensitivity 4 4 </=54 ng/L White Blood Count 8.0 4.4-10.8 10^3/uL Red Blood Count 4.47 L 4.5-5.90 10^6/uL Hemoglobin 13.4 L 13.5-17.5 g/dL Hematocrit 40.6 L 41.0-53.0 % Mean Corpuscular Volume 90.9 80.0-100.0 fL Mean Corpuscular Hemoglobin 30.0 28.0-32.0 pg Mean Corpuscular Hemoglobin Concent 33.0 32.0-36.0 g/dL Red Cell Distribution Width 14.6 H 11.8-14.3 % Platelet Count 164 140-450 10^3/uL Mean Platelet Volume 9.5 6.9-10.8 fL Neutrophils (%) (Auto) 66.3 37.0-80.0 % Lymphocytes (%) (Auto) 19.7 10.0-50.0 % Monocytes (%) (Auto) 9.4 0.0-12.0 % Eosinophils (%) (Auto) 4.0 0.0-7.0 % Basophils (%) (Auto) 0.6 0.0-2.0 % Neutrophils # (Auto) 5.3 1.6-8.6 10 ^3/uL Lymphocytes # (Auto) 1.6 0.4-5.4 10 ^3/uL Monocytes # (Auto) 0.8 0-1.3 10 ^3/uL Eosinophils # (Auto) 0.3 0-0.8 10 ^3/uL Basophils # (Auto) 0 0-0.2 10 ^3/uL Nucleated Red Blood Cells 0.0 % Sodium Level 137 136-145 mmol/L Potassium Level 4.8 3.5-5.1 mmol/L Chloride Level 99 98-107 mmol/L Carbon Dioxide Level 31 20-31 mmol/L Anion Gap 7 5-15 Blood Urea Nitrogen 19 9-23 mg/dL Creatinine 1.52 H 0.700-1.30 mg/dL Glomerular Filtration Rate Calc 47 >90 mL/min BUN/Creatinine Ratio 12.5 10.0-20.0 Serum Glucose 235 H 74-106 mg/dL Calcium Level 10.0 8.7-10.4 mg/dL B-Type Natriuretic Peptide 49.29 0-100 pg/mL POC Glucose 222 H 70-106 mg/dl Assessment Acute kidney injury superimposed Chronic Kidney Disease secondary hemodynamic mediated Diabetes mellitus type 2 Hypertension Hyperlipidemia Recommendations Closely monitor fluid and electrolytes Avoid nephrotoxic medications Strict I&Os Check urine analysis urine electrolytes and protein excretion Check kidney ultrasound I agree with diuresis Insulin sliding scale Blood pressure control We will continue to follow up Patient seen and examined by myself. I discussed my plan of care with the patient and primary nurse at the bedside I would like to thank Dr. Sanford for the consult, will follow Plan discussed with: Patient MÓNICA SHARPE MD Jul 09, 2024 10:46
--- NOTE | 2024-07-09 11:21 | DVH ---
RENAL ULTRASOUND CLINICAL HISTORY: dipti TECHNIQUE: Multiple ultrasound images of the kidneys and bladder were obtained. COMPARISON: None FINDINGS: The right kidney measures 8.5 cm in length. The left kidney measures 8.4 cm. There is no sonographic evidence of nephrolithiasis or hydronephrosis. The bladder appears within normal limits with prevoid volume measuring 112 cc. IMPRESSION: 1. Unremarkable renal ultrasound. HS:Y
[2024-07-09 11:49] LABS: Urine Bacteria None Seen /hpf (None Seen)
[2024-07-09 12:21] LABS: Urine Blood Negative /uL (Negative); Urine Clarity Clear (Clear); Urine Color Colorless (Yellow); Urine Protein, UAD Negative (Negative); Urine Specific Gravity 1.007 (1.001-1.035); Urine Urobilinogen Normal (Negative); Urine WBC <1 /hpf (0 - 3); Urine pH 6.5 (5.0-9.0)
[2024-07-09 12:21] LABS: Magnesium 1.9 mg/dL (1.6-2.6)
[2024-07-09 12:23] LABS: Phosphorus 4.4 mg/dL (2.4-5.1)
--- NOTE | 2024-07-09 13:31 | DVHPN2 ---
Subjective He says he feels better however he is hypoxic with oxygen at about 88% on room air Examination shows bilateral crackles Changes from previous H/P or p: Changes Eyes: No Pain, No Vision change, No Conjunctivae inflammation, No Eyelid inflammation, No Other, No Redness ENT: No Ear pain, No Ear discharge, No Nose pain, No Nose discharge, No Nose congestion, No Mouth pain, No Mouth swelling, No Throat pain, No Throat swelling, No Other Cardiovascular: No Chest Pain, No Palpitations, No Orthopnea, No Paroxysmal Noc. Dyspnea, No Edema, No Lt Headedness; Other (Dyspnea) Respiratory: Cough; No Dry; Shortness of breath, SOB with excertion; No Wheezing, No Hemoptysis, No Pleuritic Pain, No Sputum; Other (SOB at rest.) Gastrointestinal: No Nausea, No Vomiting, No Abdominal Pain, No Diarrhea, No Constipation, No Melena, No Hematochezia, No Other Genitourinary: No Dysuria, No Frequency, No Incontinence, No Hematuria, No Retention, No Other Musculoskeletal: No other, No neck pain, No shoulder pain, No arm pain, No back pain, No hand pain, No leg pain, No foot pain Skin: No Rash, No Lesions, No Jaundice, No Bruising, No Other Objective Vitals Vital Signs Date Time Temp Pulse Resp B/P (MAP) Pulse Ox O2 Delivery O2 Flow Rate FiO2 07/09/24 13:00 97.8 96 18 135/80 (98) 96 97.8 07/08/24 20:00 Room Air* 0 21 Intake/Output Intake and Output 07/09/24 07:00 Intake Total 2496 ml Balance 2496 ml Intake Oral 2196 ml IV Total 300 ml # Voids 8 General Appearance: Alert, Oriented X3, Cooperative Lungs: Other (Bilateral rhonchi) Cardiovascular: Regular rate, Normal S1, Normal S2 Abdomen: Normal bowel sounds, Soft, No tenderness Extremities: No edema Medications Current Medications Medications Dose Ordered Sig/Raghu Route Start Time Stop Time Status Last Admin Dose Admin Azithromycin 250 ml @ 250 mls/hr Q24H IV 07/07/24 21:00 07/08/24 20:41 250 MLS/HR Ceftriaxone Sodium 50 ml @ 100 mls/hr Q24H IV 07/07/24 21:00 07/08/24 21:40 100 MLS/HR Aspirin 81 mg DAILY PO 07/07/24 10:00 07/09/24 08:30 81 MG Clopidogrel Bisulfate 75 mg DAILY PO 07/07/24 10:00 07/09/24 08:30 75 MG Atorvastatin Calcium 20 mg HS PO 07/07/24 22:00 07/08/24 21:17 20 MG Diagnostic Test (Pha) 1 strip ACHS 07/07/24 07:00 07/09/24 11:36 1 STRIP Insulin Human Regular HS SC 07/07/24 22:00 07/08/24 21:16 6 UNITS Insulin Human Regular AC SC 07/07/24 07:00 07/09/24 11:36 9 UNITS Dextrose 50 ml UD PRN IV 07/07/24 03:30 Acetaminophen/ Hydrocodone Bitart 1 tab Q4HP PRN PO 07/07/24 03:30 Ondansetron HCl 4 mg Q4HP PRN IV 07/07/24 03:30 Docusate Sodium 100 mg BIDPRN PRN PO 07/07/24 03:30 Acetaminophen 650 mg Q6HP PRN PO 07/07/24 03:30 Nitroglycerin 0.4 mg Q5MINP PRN SL 07/07/24 03:30 Morphine Sulfate 2 mg Q30M PRN IV 07/07/24 03:30 Furosemide 40 mg BIDD IV 07/09/24 18:00 Laboratory Results Laboratory Tests 07/08/24 05:51 Chemistry Test 07/09/24 11:16 Magnesium Level 1.9 mg/dL (1.6-2.6) Phosphorus Level 4.4 mg/dL (2.4-5.1) Urinalysis Test 07/09/24 11:01 Urine Color Colorless (Yellow) Urine Clarity Clear (Clear) Urine pH 6.5 (5.0-9.0) Urine Specific [place] 1.007 (1.001-1.035) Urine Protein Negative (Negative) Urine Ketones Negative (Negative) Urine Blood Negative /uL (Negative) Urine Nitrite Negative (Negative) Urine Bilirubin Negative (Negative) Urine Urobilinogen Normal mg/dL (Negative) Urine Leukocyte Esterase Negative /uL (Negative) Urine RBC <1 /hpf (0 - 3) Urine WBC <1 /hpf (0 - 3) Urine Squamous Epithelial Cells None seen /hpf (<5) Urine Bacteria None seen /hpf (None Seen) Urine Glucose Normal mg/dL (Normal) Assessment/Plan Assessment/Plan Bilateral pneumonia Acute hypoxic respiratory failure due to pneumonia Type 2 diabetes Hypertension Dyslipidemia Chronic kidney disease stage 3a 07/07/2024: IV antibiotics Zithromax and Rocephin Resume the home medications including aspirin and Plavix Accu-Cheks Physical therapy Oxygen as needed Full code Advance directives discussed for 18 minutes 07/08/24: Continue IV antibiotics Oxygen as needed Continue the current management Keep the patient in the hospital 1 more day 07/09/2024: The patient is still hypoxic He is still symptomatic with bilateral crackles He has 1+ edema bilaterally in the lower extremities Start Lasix 40 mg IV twice a day Consult cardiology and Nephrology Monitor the patient closely Plan discussed with: Patient, Son My Orders Orders - ANIA HURST MD Procedure Category Date Status Time Furosemide Injection PHA 07/09/24 In Process (Lasix Injection) 18:00 Complete Blood Count LAB 07/10/24 Verified 04:00 Comprehensive LAB 07/10/24 Verified Metabolic Panel 04:00 Magnesium LAB 07/10/24 Verified 04:00 * Cardiology Consult CONS 07/09/24 Transmitted 08:54 *[facility] CONS 07/09/24 Transmitted -[place] 08:56 Hemoglobin A1c LAB 07/10/24 Verified 04:00 Date of Service: Jul 09, 2024 Billing Provider: ANIA HURST MD Common Visit Codes: [id number] INP/OBS CARE(HIGH) ANIA HURST MD Jul 09, 2024 13:31
[2024-07-09] MEDS: FUROSEMIDE 40 MG/4 ML VIAL IV SCH (18:06)
[2024-07-10] VITALS (8 sets, daily range): BP systolic 106–154; BP diastolic 54–81; PULSE 82–101; RESP 16–18; TEMP 97.7–98.2; O2SAT 96–100
[2024-07-10 06:27] LABS: Basophils # (auto) 0 10 ^3/uL (0-0.2); Basophils % (auto) 0.4 % (0.0-2.0); Eosinophils # (auto) 0.4 10 ^3/uL (0-0.8); Eosinophils % (auto) 4.5 % (0.0-7.0); Hematocrit 40.7 % (41.0-53.0); Hemoglobin 13.8 g/dL (13.5-17.5); Lymphocytes # (auto) 1.5 10 ^3/uL (0.4-5.4); Lymphocytes % (auto) 17.5 % (10.0-50.0); Mean Corpuscular Hemoglobin 30.6 pg (28.0-32.0); Mean Corpuscular Hgb Conc. 33.9 g/dL (32.0-36.0); Mean Corpuscular Volume 90.3 fL (80.0-100.0); Neutrophils # (auto) 5.5 10 ^3/uL (1.6-8.6); Neutrophils % (auto) 65.6 % (37.0-80.0); Platelet Count (auto) 178 10^3/uL (140-450); Red Cell Distribution Width 14.2 % (11.8-14.3); White Blood Cell 8.4 10^3/uL (4.4-10.8)
[2024-07-10 06:50] LABS: Alanine Aminotransferase 20 U/L (7-40); Albumin 4.2 g/dL (3.2-4.8); Alkaline Phosphatase 61 U/L (46-116); Anion Gap 10 (5-15); Aspartate Aminotransferase 16 U/L (13-40); BUN/Creatinine Ratio 17.5 (10.0-20.0); Carbon Dioxide 28 mmol/L (20-31); Chloride 99 mmol/L (98-107); Magnesium 1.9 mg/dL (1.6-2.6); Potassium 4.4 mmol/L (3.5-5.1); Sodium 137 mmol/L (136-145)
[2024-07-10 06:51] LABS: Bilirubin, Total 0.8 mg/dL (0.2-1.0); Total Protein 7.1 g/dL (5.7-8.2)
[2024-07-10 06:58] LABS: Blood Urea Nitrogen 32 mg/dL (9-23); Calcium 10.4 mg/dL (8.7-10.4); Glucose 185 mg/dL (74-106)
--- NOTE | 2024-07-10 10:44 | DVHCONRES ---
Date Seen: Jul 10, 2024 Resident Creating Document: PIPER SCHMIDT RESIDENT Referring Physician Dr Sanford Reason for Consultation For CHF History of Present Illness HEATHER ALAN is a 73-year-old male with PMH of type 2 DM, HTN, HLD presented to the ED with the chief complaints of worsening of shortness of Breath since 2-3 days prior to admission. Patient reports symptoms progressively get worse with productive cough, progressive shortness of breath on exertion,, when ambulating, getting worse that prompted this visit. Patient reported he does having shortness of breath occasionally for 2-3 months. Patient denies history of heart failure, chest pain, diaphoresis, palpitations, dizziness, sick contacts and other associated symptoms. Past Medical History Type 2 DM, HTN, HLD Past Surgical History Tonsillectomy and cholecystectomy Family History: Diabetes mellitus G8 MOTHER, G8 FATHER, Family History No family history of heart disease. Reviewed, noncontributory Social History Lives at home. Denies smoking, alcohol and other drug abuse Allergies: Coded Allergies: NO KNOWN ALLERGIES (Unverified , 10/21/10) Home Meds Reported Medications Metformin Hydrochloride (Metformin Hcl) 500 Mg Tab, 500 MG PO BIDWM, MG 02/29/24 Glipizide (Glipizide) 10 Mg Tab, 10 MG PO BID, MG 02/29/24 Sitagliptin Phosphate (Januvia) 100 Mg Tab, 100 MG PO DAILY, TAB 02/29/24 Current Medications Current Medications Medications (Trade) Dose Ordered Sig/Raghu Route PRN Reason Start Time Stop Time Status Last Admin Furosemide (Lasix Injection) 40 mg BIDD IV 07/09/24 18:00 07/10/24 05:29 Review of Systems Patient seen and examined at bedside. Patient reported improvement in his shortness of breath since admission and reported new complaints. Vital Signs Vital Signs Date Time Temp Pulse Resp B/P (MAP) Pulse Ox O2 Delivery O2 Flow Rate FiO2 07/10/24 09:00 98.0 88 16 106/55 (72) 96 98.0 07/10/24 08:00 Nasal Cannula* 2 28 Physical Exam General Appearance: Alert, Oriented X3, Cooperative, Not in acute distress HEENT: Atraumatic, Mucous membranes moist/pink Respiratory: Crackles in bilateral lung jose Cardiovascular: Regular rate, Normal S1, Normal S2, No murmurs Abdominal: Active bowel sounds, Soft, no distention, no tenderness Extremities: No edema, Normal pulses, No tenderness/swelling Skin: No Significant rash, except past surgical scars Neuro: Normal speech, sensorimotor deficits none Psych/Mental Status: Mental status NL, Mood NL Labs/Diagnostic Data Labs Test 07/10/24 05:23 07/10/24 05:21 07/09/24 11:16 07/09/24 11:01 Range/Units White Blood Count 8.4 4.4-10.8 10^3/uL Red Blood Count 4.50 4.5-5.90 10^6/uL Hemoglobin 13.8 13.5-17.5 g/dL Hematocrit 40.7 L 41.0-53.0 % Mean Corpuscular Volume 90.3 80.0-100.0 fL Mean Corpuscular Hemoglobin 30.6 28.0-32.0 pg Mean Corpuscular Hemoglobin Concent 33.9 32.0-36.0 g/dL Red Cell Distribution Width 14.2 11.8-14.3 % Platelet Count 178 140-450 10^3/uL Mean Platelet Volume 9.9 6.9-10.8 fL Neutrophils (%) (Auto) 65.6 37.0-80.0 % Lymphocytes (%) (Auto) 17.5 10.0-50.0 % Monocytes (%) (Auto) 12.0 0.0-12.0 % Eosinophils (%) (Auto) 4.5 0.0-7.0 % Basophils (%) (Auto) 0.4 0.0-2.0 % Neutrophils # (Auto) 5.5 1.6-8.6 10 ^3/uL Lymphocytes # (Auto) 1.5 0.4-5.4 10 ^3/uL Monocytes # (Auto) 1.0 0-1.3 10 ^3/uL Eosinophils # (Auto) 0.4 0-0.8 10 ^3/uL Basophils # (Auto) 0 0-0.2 10 ^3/uL Nucleated Red Blood Cells 0.0 % Sodium Level 137 136-145 mmol/L Potassium Level 4.4 3.5-5.1 mmol/L Chloride Level 99 98-107 mmol/L Carbon Dioxide Level 28 20-31 mmol/L Anion Gap 10 5-15 Blood Urea Nitrogen 32 #H 9-23 mg/dL Creatinine 1.83 H 0.700-1.30 mg/dL Glomerular Filtration Rate Calc 38 >90 mL/min BUN/Creatinine Ratio 17.5 10.0-20.0 Serum Glucose 185 H 74-106 mg/dL Hemoglobin A1c 8.2 H <5.7 % A1C Calcium Level 10.4 8.7-10.4 mg/dL Magnesium Level 1.9 1.6-2.6 mg/dL Total Bilirubin 0.8 0.2-1.0 mg/dL Aspartate Amino Transferase (AST) 16 13-40 U/L Alanine Aminotransferase (ALT) 20 7-40 U/L Alkaline Phosphatase 61 46-116 U/L B-Type Natriuretic Peptide 18.04 0-100 pg/mL Total Protein 7.1 5.7-8.2 g/dL Albumin 4.2 3.2-4.8 g/dL POC Glucose 184 H 70-106 mg/dl Phosphorus Level 4.4 2.4-5.1 mg/dL Vitamin D 25-Hydroxy 27.7 L 30.0-100 ng/mL Parathyroid Hormone (Intact) 39.0 18.4-80.1 pg/mL Urine Color Colorless Yellow Urine Clarity Clear Clear Urine pH 6.5 5.0-9.0 Urine Specific [place] 1.007 1.001-1.035 Urine Protein Negative Negative Urine Ketones Negative Negative Urine Blood Negative Negative /uL Urine Nitrite Negative Negative Urine Bilirubin Negative Negative Urine Urobilinogen Normal Negative mg/dL Urine Leukocyte Esterase Negative Negative /uL Urine RBC <1 0 - 3 /hpf Urine WBC <1 0 - 3 /hpf Urine Squamous Epithelial Cells None seen <5 /hpf Urine Bacteria None seen None Seen /hpf Urine Glucose Normal Normal mg/dL Test 07/07/24 01:06 07/07/24 00:46 Range/Units Troponin I High Sensitivity 5 </=54 ng/L Influenza Type A Antigen Negative Negative Influenza Type B Antigen Negative Negative SARS-CoV-2 Antigen (Rapid) Negative NEGATIVE Assessment To rule out structural heart disease Acute hypoxic respiratory failure due to pneumonia Acute Gram-positive or Gram-negative bacterial PNA Acute kidney injury superimposed Chronic Kidney Disease secondary hemodynamic mediated Diabetes mellitus type 2 Hypertension Hyperlipidemia Plan/Recommendation Plan/Recommendation We will continue with the following plan/recommendations (Dr. Lauren): Echocardiogram to evaluate cardiac function BP control Risk factor modification, counseled Dietary changes Limiting sodium intake Case discussed with Dr. Salazar, no urgent intervention needed at this time, advised outpatient follow up with possible stress test. Patient was advised about healthy lifestyle modifications including diet, exercise. Thank you for allowing us to care for this patient. Please call with any questions or concerns. Plan discussed with: Patient Visit Coding Cardiology RES Date of Service: Jul 10, 2024 Billing Provider: AGUILAR SALAZAR MD Cardiology Common Codes: [id number] INP/OBS CARE (Mod) PIPER SCHMIDT RESIDENT Jul 10, 2024 10:44
--- NOTE | 2024-07-10 11:16 | DVHPN2 ---
Subjective He is doing better Less short of breath Less edema in his lower extremities Changes from previous H/P or p: Changes Eyes: No Pain, No Vision change, No Conjunctivae inflammation, No Eyelid inflammation, No Other, No Redness ENT: No Ear pain, No Ear discharge, No Nose pain, No Nose discharge, No Nose congestion, No Mouth pain, No Mouth swelling, No Throat pain, No Throat swelling, No Other Cardiovascular: Other Respiratory: Cough, Shortness of breath, SOB with excertion, Other Gastrointestinal: No Nausea, No Vomiting, No Abdominal Pain, No Diarrhea, No Constipation, No Melena, No Hematochezia, No Other Genitourinary: No Dysuria, No Frequency, No Incontinence, No Hematuria, No Retention, No Other Musculoskeletal: No other, No neck pain, No shoulder pain, No arm pain, No back pain, No hand pain, No leg pain, No foot pain Skin: No Rash, No Lesions, No Jaundice, No Bruising, No Other Objective Vitals Vital Signs Date Time Temp Pulse Resp B/P (MAP) Pulse Ox O2 Delivery O2 Flow Rate FiO2 07/10/24 09:00 98.0 88 16 106/55 (72) 96 98.0 07/10/24 08:00 Nasal Cannula* 2 28 Intake/Output Intake and Output 07/10/24 07:00 Intake Total 3306 ml Balance 3306 ml Intake Oral 3306 ml # Voids 7 General Appearance: Alert, Oriented X3, Cooperative Lungs: Other Cardiovascular: Regular rate, Normal S1, Normal S2 Abdomen: Normal bowel sounds, Soft, No tenderness Extremities: No edema Medications Current Medications Medications Dose Ordered Sig/Raghu Route Start Time Stop Time Status Last Admin Dose Admin Azithromycin 250 ml @ 250 mls/hr Q24H IV 07/07/24 21:00 07/09/24 20:20 250 MLS/HR Ceftriaxone Sodium 50 ml @ 100 mls/hr Q24H IV 07/07/24 21:00 07/09/24 20:21 100 MLS/HR Aspirin 81 mg DAILY PO 07/07/24 10:00 07/10/24 09:19 81 MG Clopidogrel Bisulfate 75 mg DAILY PO 07/07/24 10:00 07/10/24 09:20 75 MG Atorvastatin Calcium 20 mg HS PO 07/07/24 22:00 07/09/24 20:54 20 MG Diagnostic Test (Pha) 1 strip ACHS 07/07/24 07:00 07/10/24 05:21 1 STRIP Insulin Human Regular HS SC 07/07/24 22:00 07/09/24 20:48 6 UNITS Insulin Human Regular AC SC 07/07/24 07:00 07/10/24 05:23 3 UNITS Dextrose 50 ml UD PRN IV 07/07/24 03:30 Acetaminophen/ Hydrocodone Bitart 1 tab Q4HP PRN PO 07/07/24 03:30 Ondansetron HCl 4 mg Q4HP PRN IV 07/07/24 03:30 Docusate Sodium 100 mg BIDPRN PRN PO 07/07/24 03:30 Acetaminophen 650 mg Q6HP PRN PO 07/07/24 03:30 Nitroglycerin 0.4 mg Q5MINP PRN SL 07/07/24 03:30 Morphine Sulfate 2 mg Q30M PRN IV 07/07/24 03:30 Furosemide 40 mg BIDD IV 07/09/24 18:00 07/10/24 05:29 40 MG Laboratory Results Laboratory Tests 07/10/24 05:23 Chemistry Test 07/09/24 11:16 07/10/24 05:23 07/10/24 10:30 Magnesium Level 1.9 mg/dL (1.6-2.6) 1.9 mg/dL (1.6-2.6) Pending Phosphorus Level 4.4 mg/dL (2.4-5.1) Albumin 4.2 g/dL (3.2-4.8) Calcium Level 10.4 mg/dL (8.7-10.4) Total Protein 7.1 g/dL (5.7-8.2) Cardiac Markers Test 07/10/24 05:23 B-Type Natriuretic Peptide 18.04 pg/mL (0-100) LFT Test 07/10/24 05:23 Alanine Aminotransferase (ALT) 20 U/L (7-40) Alkaline Phosphatase 61 U/L (46-116) Aspartate Amino Transferase (AST) 16 U/L (13-40) Total Bilirubin 0.8 mg/dL (0.2-1.0) HgA1c, TSH Test 07/10/24 05:23 Hemoglobin A1c 8.2 % A1C (<5.7) H Urinalysis Test 07/09/24 11:01 Urine Color Colorless (Yellow) Urine Clarity Clear (Clear) Urine pH 6.5 (5.0-9.0) Urine Specific [place] 1.007 (1.001-1.035) Urine Protein Negative (Negative) Urine Ketones Negative (Negative) Urine Blood Negative /uL (Negative) Urine Nitrite Negative (Negative) Urine Bilirubin Negative (Negative) Urine Urobilinogen Normal mg/dL (Negative) Urine Leukocyte Esterase Negative /uL (Negative) Urine RBC <1 /hpf (0 - 3) Urine WBC <1 /hpf (0 - 3) Urine Squamous Epithelial Cells None seen /hpf (<5) Urine Bacteria None seen /hpf (None Seen) Urine Glucose Normal mg/dL (Normal) Assessment/Plan Assessment/Plan Bilateral pneumonia Acute hypoxic respiratory failure due to pneumonia Type 2 diabetes Hypertension Dyslipidemia Chronic kidney disease stage 3a 07/07/2024: IV antibiotics Zithromax and Rocephin Resume the home medications including aspirin and Plavix Accu-Cheks Physical therapy Oxygen as needed Full code Advance directives discussed for 18 minutes 07/08/24: Continue IV antibiotics Oxygen as needed Continue the current management Keep the patient in the hospital 1 more day 07/09/2024: The patient is still hypoxic He is still symptomatic with bilateral crackles He has 1+ edema bilaterally in the lower extremities Start Lasix 40 mg IV twice a day Consult cardiology and Nephrology Monitor the patient closely 07/10/2024: Continue the Lasix IV, lower the dose to 40 mg once a day po Cardiology consult Echocardiogram Continue IV antibiotics Continue aspirin and Plavix and Lipitor Discussed with the son over the phone in the presence of the patient Plan discussed with: Patient, Son Date of Service: Jul 10, 2024 Billing Provider: ANIA HURST MD Common Visit Codes: [id number] INP/OBS CARE(HIGH) ANIA HURST MD Jul 10, 2024 11:16
--- NOTE | 2024-07-10 12:06 | DVHPN2 ---
Progress Note Date Seen: Jul 10, 2024 Medical Necessity Reason Pt with a Central, PICC or Fol: No Subjective Patient reports: No new complaints Other Systems: Patient seen and examined by myself in follow-up today Objective vital signs Vital Sign Date Time Temp Pulse Resp B/P (MAP) Pulse Ox O2 Delivery O2 Flow Rate FiO2 07/10/24 09:00 98.0 88 16 106/55 (72) 96 98.0 07/10/24 08:00 Nasal Cannula* 2 28 Total Intake and Output 07/09/24 07/09/24 07/10/24 15:00 23:00 07:00 Intake Total 838 ml 2118 ml 350 ml Balance 838 ml 2118 ml 350 ml medications Current Medications Medications Dose Ordered Sig/Raghu Route Start Time Stop Time Status Last Admin Dose Admin Azithromycin 250 ml @ 250 mls/hr Q24H IV 07/07/24 21:00 07/09/24 20:20 250 MLS/HR Ceftriaxone Sodium 50 ml @ 100 mls/hr Q24H IV 07/07/24 21:00 07/09/24 20:21 100 MLS/HR Aspirin 81 mg DAILY PO 07/07/24 10:00 07/10/24 09:19 81 MG Clopidogrel Bisulfate 75 mg DAILY PO 07/07/24 10:00 07/10/24 09:20 75 MG Atorvastatin Calcium 20 mg HS PO 07/07/24 22:00 07/09/24 20:54 20 MG Diagnostic Test (Pha) 1 strip ACHS 07/07/24 07:00 07/10/24 05:21 1 STRIP Insulin Human Regular HS SC 07/07/24 22:00 07/09/24 20:48 6 UNITS Insulin Human Regular AC SC 07/07/24 07:00 07/10/24 05:23 3 UNITS Dextrose 50 ml UD PRN IV 07/07/24 03:30 Acetaminophen/ Hydrocodone Bitart 1 tab Q4HP PRN PO 07/07/24 03:30 Ondansetron HCl 4 mg Q4HP PRN IV 07/07/24 03:30 Docusate Sodium 100 mg BIDPRN PRN PO 07/07/24 03:30 Acetaminophen 650 mg Q6HP PRN PO 07/07/24 03:30 Nitroglycerin 0.4 mg Q5MINP PRN SL 07/07/24 03:30 Morphine Sulfate 2 mg Q30M PRN IV 07/07/24 03:30 Furosemide 40 mg DAILY PO 07/11/24 10:00 Examination: LUNGS:Normal, CVS:Normal, MSK:Normal laboratory and microbiology Laboratory Tests 07/10/24 05:23 Test 07/10/24 05:23 Range/Units Serum Glucose 185 H 74-106 mg/dL Problem List/Assessment/Plan Problem List/Assessment/Plan Acute kidney injury superimposed Chronic Kidney Disease secondary hemodynamic mediated Diabetes mellitus type 2 Hypertension Hyperlipidemia Pneumonia Recommendations Kidney function worsened today No urine output charted Melgar catheter Strict I&Os Check urine analysis urine electrolytes and protein excretion kidney ultrasound reported within normal limit DC furosemide IVF NS at 75 cc/hour IV antibiotics Insulin sliding scale Blood pressure control We will continue to follow up Plan discussed with: Patient My Orders My Orders Orders - MÓNICA SHARPE MD Procedure Category Date Status Time Insert Melgar Catheter DOTTY 07/10/24 In Process 10:48 Dietary Evaluation Review Comments: 1) If GFR does not improve, consider adding a Renal Specific K2,low phos,2gmNa,80gPro diet to CCHO 60g diet order 2) Continue current plan of care Expected Outcomes/Goals: 1) Pt labs to improve 2) F/U in 3-5 days MÓNICA SHARPE MD Jul 10, 2024 12:06
[2024-07-10] MEDS: SODIUM CHLORIDE 0.9% 1,000 ML IV SCH (13:29)
[2024-07-10 21:28] LABS: Creatinine, Urine 54.71 mg/dL (30.0-125.0); Urine Protein/Creatinine Ratio 0.11
[2024-07-10 21:29] LABS: Creatinine, Urine 54.58 mg/dL (30.0-125.0)
[2024-07-10 21:35] LABS: Amphetamine Screen, Urine Neg (NEGATIVE); Barbiturate Scree,Urine Neg (NEGATIVE); Benzodiazephine Screen, Urine Neg (NEGATIVE); Cannabinoid Screen, Urine Neg (NEGATIVE); Cocaine Screen, Urine Neg (NEGATIVE); Opiate Scree,Urine Neg (NEGATIVE); Phencyclidine Screen, Urine Neg (NEGATIVE); Protein, Urine < 6.0 mg/dL (1-14)
[2024-07-11 01:00] VITALS: BP 142/67; PULSE 89; RESP 17; TEMP 98.2; O2SAT 98
[2024-07-11 05:00] VITALS: BP 135/63; PULSE 84; RESP 18; TEMP 98; O2SAT 96
[2024-07-11 07:00] LABS: Anion Gap 6 (5-15); Carbon Dioxide 29 mmol/L (20-31); Chloride 101 mmol/L (98-107); Potassium 4.4 mmol/L (3.5-5.1); Sodium 136 mmol/L (136-145)
[2024-07-11 07:06] LABS: BUN/Creatinine Ratio 19.2 (10.0-20.0)
[2024-07-11 07:07] LABS: Blood Urea Nitrogen 30 mg/dL (9-23); Glucose 173 mg/dL (74-106)
[2024-07-11 07:30] VITALS: PULSE 75; PULSE 83; RESP 14; O2SAT 95
[2024-07-11 09:00] VITALS: BP 139/67; PULSE 78; RESP 12; TEMP 97.4; O2SAT 96
--- NOTE | 2024-07-11 09:45 | DVHSR ---
APPROVED REPORT EXAM: LIMITED Two-dimensional and M-mode echocardiogram with Doppler and color Doppler. Blood Pressure: 129/81 mmHg INDICATION SOB RISK FACTORS Height: 5' 4", Weight: 156 DIMENSIONS LVDd3.9 (3.8-5.7cm)LA (2D)3.7 (1.9-4.0cm)Aortic Root3.4 (2.0-3.7cm) LVDs2.9 (2.5-4.0cm)LA (MM) (1.9-4.0cm)Aortic Cusp Exc1.9 (1.5-2.0cm) EF (%) 50.0 (55-70%)Rt. Atrium3.8 (1.9-4.0cm)Asc. Aorta cm IVSd1.0 (0.7-1.1cm)RV (D) (1.8-2.4cm) PWd1.0 (0.7-1.1cm) Mitral Valve MitralMitral Stenosis E wave0.50m/sMV Mean GR.mmHg A wave0.80m/sMV Peak GR.mmHg E/A ratio0.62D MVAcm2 Aortic Valve Aortic ValveAortic Stenosis V10.50m/Kandi Mean GR.2mmHg V20.90m/Kandi Peak GR.4mmHg LVOT Diameter2.3 (1.8-2.4cm)Doppler AVA2.31cm2 Pulmonic Valve V20.70m/s Other Information Quality : LimitedRhythm : Technically limited study due to body habitus. Conclusion Overall normal left ventricular size and dimension. With a borderline normal left ventricular systol ic function at 50%. There is mild inferior wall hypokinesia. There is a grade 1 diastolic dysfuncti on. Normal right ventricular size and dimension. Normal right ventricular systolic function. Normal Biatrial size and dimension. Normal aortic valve structure and function. Normal mitral valve structure and function. Normal tricuspid valve structure and function. The pulmonary valve is grossly normal. No pericardial effusion.
[2024-07-11] MEDS ORDERED: FUROSEMIDE 40 MG TAB PO SCH (10:00)
[2024-07-11] MEDS ORDERED: CLOP75TA70 PO (11:16)
[2024-07-11] MEDS ORDERED: ASPI-325 PO (11:16)
[2024-07-11] MEDS ORDERED: ATOR20TA50 PO (11:16)
[2024-07-11] MEDS ORDERED: FURO1TAB33 PO (11:17)
[2024-07-11] MEDS ORDERED: LEVO500T91 PO (11:17)
--- NOTE | 2024-07-11 11:21 | DVHDS2 ---
Discharge Summary Date of Admission Jul 07, 2024 at 03:22 Date of Discharge: Jul 11, 2024 Labs/Diagnostic Data: Laboratory Results Test 07/11/24 06:27 07/11/24 06:06 07/10/24 20:54 07/10/24 05:23 POC Glucose 188 mg/dl (70-106) Sodium Level 136 mmol/L (136-145) Potassium Level 4.4 mmol/L (3.5-5.1) Chloride Level 101 mmol/L (98-107) Carbon Dioxide Level 29 mmol/L (20-31) Anion Gap 6 (5-15) Blood Urea Nitrogen 30 mg/dL (9-23) Creatinine 1.56 mg/dL (0.700-1.30) Glomerular Filtration Rate Calc 46 mL/min (>90) BUN/Creatinine Ratio 19.2 (10.0-20.0) Serum Glucose 173 mg/dL (74-106) Calcium Level 10.0 mg/dL (8.7-10.4) Magnesium Level 2.0 mg/dL (1.6-2.6) Urine Creatinine 54.71 mg/dL (30.0-125.0) Urine Protein/Creatinine Ratio 0.11 Urine Sodium 32 mmol/L (40-220) Urine Total Protein < 6.0 mg/dL (1-14) Urine Opiates Screen Neg (NEGATIVE) Urine Fentanyl Screen Neg (NEGATIVE) Urine Barbiturates Screen Neg (NEGATIVE) Urine Phencyclidine Screen Neg (NEGATIVE) Urine Amphetamines Screen Neg (NEGATIVE) Urine Benzodiazepines Screen Neg (NEGATIVE) Urine Cocaine Screen Neg (NEGATIVE) Urine Cannabinoids Screen Neg (NEGATIVE) White Blood Count 8.4 10^3/uL (4.4-10.8) Red Blood Count 4.50 10^6/uL (4.5-5.90) Hemoglobin 13.8 g/dL (13.5-17.5) Hematocrit 40.7 % (41.0-53.0) Mean Corpuscular Volume 90.3 fL (80.0-100.0) Mean Corpuscular Hemoglobin 30.6 pg (28.0-32.0) Mean Corpuscular Hemoglobin Concent 33.9 g/dL (32.0-36.0) Red Cell Distribution Width 14.2 % (11.8-14.3) Platelet Count 178 10^3/uL (140-450) Mean Platelet Volume 9.9 fL (6.9-10.8) Neutrophils (%) (Auto) 65.6 % (37.0-80.0) Lymphocytes (%) (Auto) 17.5 % (10.0-50.0) Monocytes (%) (Auto) 12.0 % (0.0-12.0) Eosinophils (%) (Auto) 4.5 % (0.0-7.0) Basophils (%) (Auto) 0.4 % (0.0-2.0) Neutrophils # (Auto) 5.5 10 ^3/uL (1.6-8.6) Lymphocytes # (Auto) 1.5 10 ^3/uL (0.4-5.4) Monocytes # (Auto) 1.0 10 ^3/uL (0-1.3) Eosinophils # (Auto) 0.4 10 ^3/uL (0-0.8) Basophils # (Auto) 0 10 ^3/uL (0-0.2) Nucleated Red Blood Cells 0.0 % Hemoglobin A1c 8.2 % A1C (<5.7) Total Bilirubin 0.8 mg/dL (0.2-1.0) Aspartate Amino Transferase (AST) 16 U/L (13-40) Alanine Aminotransferase (ALT) 20 U/L (7-40) Alkaline Phosphatase 61 U/L (46-116) B-Type Natriuretic Peptide 18.04 pg/mL (0-100) Total Protein 7.1 g/dL (5.7-8.2) Albumin 4.2 g/dL (3.2-4.8) Test 07/09/24 11:16 07/09/24 11:01 07/07/24 01:06 07/07/24 00:46 Phosphorus Level 4.4 mg/dL (2.4-5.1) Vitamin D 25-Hydroxy 27.7 ng/mL (30.0-100) Parathyroid Hormone (Intact) 39.0 pg/mL (18.4-80.1) Urine Color Colorless (Yellow) Urine Clarity Clear (Clear) Urine pH 6.5 (5.0-9.0) Urine Specific [place] 1.007 (1.001-1.035) Urine Protein Negative (Negative) Urine Ketones Negative (Negative) Urine Blood Negative /uL (Negative) Urine Nitrite Negative (Negative) Urine Bilirubin Negative (Negative) Urine Urobilinogen Normal mg/dL (Negative) Urine Leukocyte Esterase Negative /uL (Negative) Urine RBC <1 /hpf (0 - 3) Urine WBC <1 /hpf (0 - 3) Urine Squamous Epithelial Cells None seen /hpf (<5) Urine Bacteria None seen /hpf (None Seen) Urine Glucose Normal mg/dL (Normal) Troponin I High Sensitivity 5 ng/L (</=54) Influenza Type A Antigen Negative (Negative) Influenza Type B Antigen Negative (Negative) SARS-CoV-2 Antigen (Rapid) Negative (NEGATIVE) Other Laboratory Tests 07/11/24 06:06 07/10/24 05:23 Brief Hx & Hospital Course: Final diagnoses: Bilateral pneumonia Acute on chronic diastolic heart failure Acute hypoxic respiratory failure due to pneumonia and diastolic heart failure Type 2 diabetes Hypertension Dyslipidemia Chronic kidney disease stage 3a 73-year-old male who was admitted for shortness of breaths and cough, he was initially diagnosed with bilateral pneumonia based on the x-ray findings and he was treated with IV antibiotics and oxygen however he did not improve much and therefore evaluation for heart failure was done with an echocardiogram which shows an ejection fraction of 50% and mild inferior wall hypokinesia and grade 1 diastolic dysfunction He was started on Lasix which resulted in immediate improvement in his symptoms and his edema improved He was continued on IV antibiotics and today he is doing much better Today he is not hypoxic anymore and doing well on room air and therefore he will be discharged home Discharge medications will include Lasix 20 mg p.o. daily and for the pneumonia Levaquin 500 mg daily for 7 days Continue Lipitor and aspirin and the rest of his home medications Follow up with his primary care physician as soon as possible Condition at Discharge: Stable Final Diagnosis/Problems List Bilateral pneumonia Acute on chronic diastolic heart failure Acute hypoxic respiratory failure due to pneumonia and diastolic heart failure Type 2 diabetes Hypertension Dyslipidemia Chronic kidney disease stage 3a Discharge Disposition: Home SNF Discharge Will this Physician continue t: No Discharge Statement: "Patient was advised to return to the ER or call 911 if any headaches, dizziness, shortness of breath, chest pain, abdominal pain, bleeding, fevers, or worsening of medical condition. Patient was counseled about treatment plan, medications, possible side effects, patientverbalized understanding. All questions were answered to the best of my ability. This discharge took greater then 30 minutes in planning, reviewing documentation, counseling the patient, and discussing with other team members." ASSESSMENT ASSESSMENT Assessment Date of Service: Jul 11, 2024 Billing Provider: ANIA HURST MD Common Visit Codes: [id number] DISCH DAY >30min ANIA HURST MD Jul 11, 2024 11:21
[2024-07-11 12:53] LABS: Base Excess -1.1 mmol/L (-2.0-3.0)
[2024-07-11 13:00] VITALS: BP 121/67; PULSE 86; RESP 16; TEMP 97.8; O2SAT 94
--- NOTE | 2024-07-11 14:17 | DVHPNRES ---
Progress Note Date Seen: Jul 11, 2024 Resident Creating Document: PIPER SCHMIDT RESIDENT Medical Necessity Reason Pt with a Central, PICC or Fol: No Subjective Review of Systems Patient seen and examined at the bedside. Patient reported improvement in his symptoms since admission, no new complaints reported at this time. Patient reports: No new complaints, Feels better Objective vital signs Vital Sign Date Time Temp Pulse Resp B/P (MAP) Pulse Ox O2 Delivery O2 Flow Rate FiO2 07/11/24 09:00 97.4 78 12 139/67 (91) 96 97.4 07/11/24 07:30 Room Air* 0 21 Total Intake and Output 07/10/24 07/10/24 07/11/24 15:00 23:00 07:00 Intake Total 900 ml 650 ml Output Total 600 ml 650 ml Balance 300 ml 0 ml medications Current Medications Medications Dose Ordered Sig/Raghu Route Start Time Stop Time Status Last Admin Dose Admin Azithromycin 250 ml @ 250 mls/hr Q24H IV 07/07/24 21:00 07/10/24 21:09 250 MLS/HR Ceftriaxone Sodium 50 ml @ 100 mls/hr Q24H IV 07/07/24 21:00 07/10/24 20:18 100 MLS/HR Aspirin 81 mg DAILY PO 07/07/24 10:00 07/11/24 10:20 81 MG Clopidogrel Bisulfate 75 mg DAILY PO 07/07/24 10:00 07/11/24 10:20 75 MG Atorvastatin Calcium 20 mg HS PO 07/07/24 22:00 07/10/24 20:18 20 MG Diagnostic Test (Pha) 1 strip ACHS 07/07/24 07:00 07/11/24 11:30 1 STRIP Insulin Human Regular HS SC 07/07/24 22:00 07/10/24 22:07 4 UNITS Insulin Human Regular AC SC 07/07/24 07:00 07/11/24 12:48 6 UNITS Dextrose 50 ml UD PRN IV 07/07/24 03:30 Acetaminophen/ Hydrocodone Bitart 1 tab Q4HP PRN PO 07/07/24 03:30 Ondansetron HCl 4 mg Q4HP PRN IV 07/07/24 03:30 Docusate Sodium 100 mg BIDPRN PRN PO 07/07/24 03:30 Acetaminophen 650 mg Q6HP PRN PO 07/07/24 03:30 Nitroglycerin 0.4 mg Q5MINP PRN SL 07/07/24 03:30 Morphine Sulfate 2 mg Q30M PRN IV 07/07/24 03:30 Sodium Chloride 1,000 ml @ 75 mls/hr [id number] IV 07/10/24 12:15 07/10/24 13:29 75 MLS/HR Examination Pt is lying on bed General Appearance: Alert, Oriented X3, Cooperative, Not in acute distress HEENT: Atraumatic, Mucous membranes moist/pink Respiratory: Clear to auscultation, Normal air movement, No added sounds Cardiovascular: Regular rate, Normal S1, Normal S2, No murmurs Abdominal: Active bowel sounds, Soft, no distention, no tenderness Extremities: No edema, Normal pulses, No tenderness/swelling Skin: No Significant rash, except past surgical scars Neuro: Normal speech, sensorimotor deficits none Psych/Mental Status: Mental status NL, Mood NL Nurse was there as sharperone during examination laboratory and microbiology Laboratory Tests 07/11/24 06:06 07/10/24 05:23 Test 07/11/24 06:06 Range/Units Serum Glucose 173 H 74-106 mg/dL Labs and/or images reviewed: Labs reviewed by me, Image(s) reviewed by me Problem List/Assessment/Plan Problem List/Assessment/Plan To rule out structural heart disease Acute hypoxic respiratory failure due to pneumonia Acute Gram-positive or Gram-negative bacterial PNA Acute kidney injury superimposed Chronic Kidney Disease secondary hemodynamic mediated Diabetes mellitus type 2 Hypertension Hyperlipidemia Plan/Recommendation We will continue with the following plan/recommendations (Dr. Lauren): Echocardiogram LVEF 50% with mild inferior wall hypokinesia and grade 1 diastolic dysfunction. BP control Risk factor modification, counseled Dietary changes Limiting sodium intake Case discussed with Dr. Jacobs, no urgent intervention needed at this time, advised outpatient follow up with possible stress test. Patient was advised about healthy lifestyle modifications including diet, exercise. Thank you for allowing us to care for this patient. Please call with any questions or concerns. Plan discussed with: Patient Dietary Evaluation Review Comments: 1) If GFR does not improve, consider adding a Renal Specific K2,low phos,2gmNa,80gPro diet to CCHO 60g diet order 2) Continue current plan of care Expected Outcomes/Goals: 1) Pt labs to improve 2) F/U in 3-5 days Visit Coding Cardiology RES Date of Service: Jul 11, 2024 Billing Provider: AGUILAR JACOBS MD Cardiology Common Codes: [id number] INP/OBS CARE(Mod) PIPER SCHMIDT RESIDENT Jul 11, 2024 14:17
[2024-07-11 15:19] VITALS: BP 118/54; PULSE 90; RESP 18; TEMP 98.7; O2SAT 95
--- NOTE | 2024-07-11 16:28 | DVHPN2 ---
Progress Note Date Seen: Jul 11, 2024 Medical Necessity Reason Pt with a Central, PICC or Fol: No Subjective Patient reports: No new complaints Other Systems: Patient seen and examined by myself today Objective vital signs Vital Sign Date Time Temp Pulse Resp B/P (MAP) Pulse Ox O2 Delivery O2 Flow Rate FiO2 07/11/24 15:19 98.7 90 18 95 07/11/24 13:00 121/67 (85) 07/11/24 07:30 Room Air* 0 21 Total Intake and Output 07/10/24 07/10/24 07/11/24 15:00 23:00 07:00 Intake Total 900 ml 650 ml Output Total 600 ml 650 ml Balance 300 ml 0 ml Examination: LUNGS:Normal ( follow-up), CVS:Normal, MSK:Normal laboratory and microbiology Laboratory Tests 07/11/24 06:06 07/10/24 05:23 Test 07/11/24 06:06 Range/Units Serum Glucose 173 H 74-106 mg/dL Problem List/Assessment/Plan Problem List/Assessment/Plan Acute kidney injury superimposed Chronic Kidney Disease secondary hemodynamic mediated Diabetes mellitus type 2 Hypertension Hyperlipidemia Pneumonia Recommendations New function stabilize stage IIIB Melgar catheter Strict I&Os Check urine analysis urine electrolytes and protein excretion kidney ultrasound reported within normal limit DC furosemide IVF NS at 75 cc/hour IV antibiotics Insulin sliding scale Blood pressure control We will continue to follow up Plan discussed with: Patient Dietary Evaluation Review Comments: 1) If GFR does not improve, consider adding a Renal Specific K2,low phos,2gmNa,80gPro diet to CCHO 60g diet order 2) Continue current plan of care Expected Outcomes/Goals: 1) Pt labs to improve 2) F/U in 3-5 days MÓNICA SHAPRE MD Jul 11, 2024 16:28
== END 2024-07-11 16:06 | disposition home or self-care (01) | DRG 177 ==
LOC: ER 19:40 → TELE 07-07 03:22 → TELE-CENTR 07-07 06:38 → TELE-EAST 07-10 19:45
PROVIDERS: ADMIT Nurse Practitioner Family; ATTEND Internal Medicine Geriatric Medicine
DX: J15.69 Pneumonia due to other Gram-negative bacteria (principal); I50.33 Acute on chronic diastolic (congestive) heart failure; J96.01 Acute respiratory failure with hypoxia; I13.0 Hypertensive heart and chronic kidney disease with heart failure and stage 1 through stage 4 chronic kidney disease, or unspecified chronic kidney disease; N17.9 Acute kidney failure, unspecified; J15.9 Unspecified bacterial pneumonia; Z20.822 Contact with and (suspected) exposure to COVID-19; E78.5 Hyperlipidemia, unspecified; E11.65 Type 2 diabetes mellitus with hyperglycemia; E11.22 Type 2 diabetes mellitus with diabetic chronic kidney disease; N18.31 Chronic kidney disease, stage 3a; Z90.49 Acquired absence of other specified parts of digestive tract; Z79.82 Long term (current) use of aspirin; Z79.02 Long term (current) use of antithrombotics/antiplatelets; Z79.899 Other long term (current) drug therapy; Z83.3 Family history of diabetes mellitus
CPT/HCPCS: 36415; 36600; 71046; 76775; 80048; 80053; 80307; 81001; 82306; 82570; 82805; 82962; 83036; 83735; 83880; 83970; 84100; 84156; 84300; 84484; 85025; 87426; 87804; 93306; 97110; 97116; 97162; 97530; 99291; G0378; J0692; J1815

== ENCOUNTER 2024-08-28 14:55 | Emergency (ER) | payer OTHER ==
[~2024-08-28] VITALS: Ht 162.6 cm; Wt 73.0 kg
[~2024-08-28 14:55] MED LIST changes: -ATOR20TA PO; +ATOR20TA50 PO; -CLOP75TA28 PO; +FURO1TAB33 PO; -INSU70IN9 SC; +LEVO500T91 PO; -LISI20TA56 PO
--- NOTE | 2024-08-28 15:23 | ED.PDOC ---
History of Present Illness HPI Comments 74 y/o M, presents to the ED fo CC of abnormal labs. Patient states, that he went to his PCP () for routine labs when he was instructed to follow up with ED for a further workup due to high potassium. Patient denies any social history. Patient denies dizziness, weakness, headache, or N/V/D. No other sym ptoms or modifying factors at this time. Time Seen by MD: 15:05 Reviewed Notes: Nurses Notes, Medications, Allergies Allergies: Coded Allergies: NO KNOWN ALLERGIES (Unverified , 10/21/10) Home Meds Active Scripts Levofloxacin Hemihydrate (LEVAQUIN 500 MG) 500 Mg Tab, 1 TAB PO DAILY, #7 TAB Prov:ANIA HURST MD 07/11/24 Furosemide (Lasix) 20 Mg Tb, 1 TAB PO DAILY, #30 TAB 5 Refills Prov:ANIA HURST MD 07/11/24 Atorvastatin Calcium (ATORVASTATIN CALCIUM) 20 Mg Tab, 20 MG PO HS for 30 Days, #30 TAB 5 Refills Prov:ANIA HURST MD 07/11/24 Aspirin (Aspirin Low Dose) 81 Mg Tab, 81 MG PO DAILY, #100 TAB 3 Refills Prov:ANIA HURST MD 07/11/24 Reported Medications Metformin Hydrochloride (Metformin Hcl) 500 Mg Tab, 500 MG PO BIDWM, MG 02/29/24 Glipizide (Glipizide) 10 Mg Tab, 10 MG PO BID, MG 02/29/24 Sitagliptin Phosphate (Januvia) 100 Mg Tab, 100 MG PO DAILY, TAB 02/29/24 Information Source: Patient Mode of Arrival: Ambulatory Severity: Moderate Timing: Days Duration: Since onset Prehospital treatment: None Past Medical History PAST MEDICAL HISTORY: DM Surgical History: Cholecystectomy, Tonsillectomy Family History Family History: Reviewed,noncontributory to illness Social History Smoker: Non-Smoker Alcohol: Denies ETOH Use Drugs: Denies Drug Use Lives In: Home Constitutional: denies: chills, diaphoresis, fatigue, fever, malaise, sweats, weakness, others EENTM: denies: blurred vision, double vision, ear bleeding, ear discharge, ear drainage, ear pain, ear ringing, eye pain, eye redness, hearing loss, mouth pain, mouth swelling, nasal discharge, nose bleeding, nose congestion, nose pain, photophobia, tearing, throat pain, throat swelling, voice changes, others Respiratory: denies: cough, hemoptysis, orthopnea, SOB at rest, shortness of breath, SOB with excertion, stridor, wheezing, others Cardiovascular: denies: chest pain, dizzy spells, diaphoresis, Dyspnea on exertion, edema, irregular heart beat, left arm pain, lightheadedness, palpitations, PND, syncope, others Gastrointestinal: denies: abdomen distended, abdominal pain, blood streaked bowels, constipated, diarrhea, dysphagia, difficulty swallowing, hematemesis, melena, nausea, poor appetite, poor fluid intake, rectal bleeding, rectal pain, vomiting, others Genitourinary: denies: burning, dysuria, flank pain, frequency, hematuria, incontinence, penile discharge, penile sore, pain, testicle pain, testicle swelling, urgency, others Neurological: denies: dizziness, fainting, headache, left sided numbness, left sided weakness, numbness, paresthesia, pre-existing deficit, right sided numbness, right sided weakness, seizure, speech problems, tingling, tremors, weakness, others Musculoskeletal: denies: back pain, gout, joint pain, joint swelling, muscle pain, muscle stiffness, neck pain, others Integumetry: denies: bruises, change in color, change in hair/nails, dryness, laceration, lesions, lumps, rash, wounds, others Allergic/Immunocompromised: denies: Difficulty Healing, Frequent Infections, Hives, Itching, others Hematologic/Lymphatic: denies: anemia, blood clots, easy bleeding, easy bruising, swollen glands, others Endocrine: denies: excessive hunger, excessive sweating, excessive thirst, excessive urination, flushing, intolerance to cold, intolerance to heat, unexplained weight gain, unexplained weight loss, others Psychiatric: denies: anxiety, bipolar disorder, depression, hopeless, panic disorder, schizophrenia, sleepless, suicidal, others All Other Systems: Reviewed and Negative Physical Exam General Appearance: Moderate Distress HEENT: Normal ENT Inspection, Pharynx Normal, TMs Normal Neck: Full Range of Motion, Non-Tender, Normal, Normal Inspection Respiratory: Chest Non-Tender, Lungs Clear, No Accessory Muscle Use, No Respiratory Distress, Normal Breath Sounds Cardiovascular: No Edema, No JVD, No Murmur, No Gallop, Normal Peripheral Pulses, Regular Rate/Rhythm Breast Exam: Deferred Gastrointestinal: No Organomegaly, Non Tender, No Pulsatile Mass, Normal Bowel Sounds, Soft Genitalia: Deferred Pelvic: Deferred Rectal: Deferred Extremities: No calf tenderness, Normal capillary refill, Normal inspection, Normal range of motion, Non-tender, No pedal edema Musculoskeletal : Apperance: Normal Neurologic: Alert, stonecutter assistant II-XII nml as Tested, No Motor Deficits, Normal Affect, Normal Mood, No Sensory Deficits Cerebellar Function: Normal Reflexes: Normal Skin: Dry, Normal Color, Warm Peripheral Pulses: 3+ Radial (R), 3+ Radial (L) Lymphatic: No Adenopathy Was a procedure done? Was a procedure done?: No Differential Dx Considerations may include: Anemia Electrolyte imbalance X-Ray, Labs, Meds, VS Vital Signs Date Time Temp Pulse Resp B/P (MAP) Pulse Ox O2 Delivery O2 Flow Rate FiO2 08/28/24 15:21 97 Lab Test 08/28/24 15:17 Range/Units POC Glucose 175 H 70-106 mg/dl Patient alert. Complaining of having abnormal labs. Referred by his primary care physician. Vitals stable. Answering all questions. Blood sugar elevated. Came in because of hyperkalemia. Reviewed his labs. Explained to the patient. Continue cardiac monitoring Time of 1ST Reevaluation: 15:35 Reevaluation 1ST: Unchanged Patient Education/Counseling: Diagnosis, Treatment Family Education/Counseling: Diagnosis, Treatment Additional Information I reviewed the following notes from patient's past medical encounters: 07/07/24 DX:PNEUMONIA The following tests were ordered, and results were reviewed by me: CBC, BMP, EKG Additional Information was gathered from interviewing the following independent historians: FAMILY I discussed treatment and results with medical personnel and: FAMILY Departure 1 Departure Time of Disposition: 15:34 Impression: Primary Impression: Uncontrolled diabetes mellitus Qualified Codes: E13.65 - Other specified diabetes mellitus with hyperglycemia Disposition: ADMITTED INPATIENT Admit to: Med Surg Condition: Guarded Critical Care Note Critical Care Time?: No Stability Stability form required: No Heart Score Heart Score: Heart Score Response (Comments) Value History N/A 0 EKG N/A 0 Age N/A 0 Risk Factors N/A 0 Troponin N/A 0 Total 0 I personally scribed for SHAYE GIMENEZ MD ([email or web address]) on 08/28/24 at 15:23. Electronically submitted by Ekta Bentley ([email or web address]). I personally scribed for SHAYE GIMENEZ MD ([email or web address]) on 08/28/24 at 15:43. Electronically submitted by Ekta Bentley ([email or web address]). SHAYE GIMENEZ MD Aug 28, 2024 15:23
--- NOTE | 2024-08-28 15:37 | ECG ---
[facility] Test Date: 2024-08-28 Test Time: 15:21:44 Pat Name: HEATHER ALAN Department: ER Room: Gender: M Client Business Manager: MICHAEL : 1950 Requested By: SHAYE GIMENEZ Order Number: [id number] Reading MD: Cricket Bedolla Measurements Intervals [place] Rate: 97 P: 50 AL: 140 QRS: -13 QRSD: 81 T: 29 QT: 341 QTc: 433 Interpretive Statements Sinus rhythm Baseline wander in lead(s) V1,V2,V4,V5,V6 Electronically Signed On 08-29-2024 9:49:01 PST by Cricket Bedolla Please click the below link to view image of tracing.
[2024-08-28 15:52] LABS: Basophils # (auto) 0.1 10 ^3/uL (0-0.2); Basophils % (auto) 0.7 % (0.0-2.0); Eosinophils # (auto) 0.3 10 ^3/uL (0-0.8); Eosinophils % (auto) 4.2 % (0.0-7.0); Hemoglobin 14.3 g/dL (13.5-17.5); Lymphocytes # (auto) 1.6 10 ^3/uL (0.4-5.4); Lymphocytes % (auto) 19.8 % (10.0-50.0); Mean Corpuscular Hemoglobin 29.8 pg (28.0-32.0); Mean Corpuscular Hgb Conc. 33.2 g/dL (32.0-36.0); Mean Corpuscular Volume 89.7 fL (80.0-100.0); Monocytes # (auto) 0.7 10 ^3/uL (0-1.3); Monocytes % (auto) 8.5 % (0.0-12.0); Neutrophils # (auto) 5.4 10 ^3/uL (1.6-8.6); Neutrophils % (auto) 66.8 % (37.0-80.0); Platelet Count (auto) 231 10^3/uL (140-450); Red Cell Distribution Width 14.3 % (11.8-14.3); White Blood Cell 8.1 10^3/uL (4.4-10.8)
[2024-08-28 16:05] LABS: Chloride 99 mmol/L (98-107); Potassium 4.6 mmol/L (3.5-5.1)
[2024-08-28 16:06] LABS: Anion Gap 9 (5-15); Calcium 10.4 mg/dL (8.7-10.4); Carbon Dioxide 27 mmol/L (20-31)
[2024-08-28 16:11] LABS: BUN/Creatinine Ratio 15.3 (10.0-20.0); Blood Urea Nitrogen 22 mg/dL (9-23)
[2024-08-28 16:16] LABS: Glucose 209 mg/dL (74-106); Sodium 135 mmol/L (136-145)
[2024-08-28 17:11] VITALS: BP 141/73; PULSE 96; RESP 16; TEMP 97.4; O2SAT 99
[2024-08-28 20:33] LABS: Urine Bacteria None Seen /hpf (None Seen)
[2024-08-28 20:58] LABS: Urine Blood Negative /uL (Negative); Urine Clarity Clear (Clear); Urine Color Yellow (Yellow); Urine Protein, UAD Negative (Negative); Urine Specific Gravity 1.013 (1.001-1.035); Urine Squamous Epithelial Cell None Seen /hpf (<5); Urine Urobilinogen Normal (Negative); Urine pH 5.5 (5.0-9.0)
== END 2024-08-28 22:01 | disposition left against medical advice (07) ==
LOC: ER 14:55
DX: E11.65 Type 2 diabetes mellitus with hyperglycemia (principal); Z90.89 Acquired absence of other organs; Z90.49 Acquired absence of other specified parts of digestive tract
CPT/HCPCS: 36415; 80048; 81001; 82962; 85025; 93005

== ENCOUNTER 2025-06-19 20:46 | Inpatient (IN) | payer OTHER ==
[~2025-06-19] VITALS: Ht 162.6 cm; Wt 64.8 kg
[2025-06-19] MEDS: AZITHROMYCIN 500MG/250ML 250 ML IV ONE
--- NOTE | 2025-06-19 20:51 | ECG ---
[facility] [place] Test Date: 2025-06-19 Test Time: 20:44:20 Pat Name: HEATHER ALAN Department: ED Room: Gender: M Collection Agent: GERARD : 1950 Requested By: EMERGENCY EMERGENCY Order Number: [id number] Reading MD: Measurements Intervals [place] Rate: 107 P: 38 TX: 134 QRS: -5 QRSD: 94 T: 26 QT: 334 QTc: 446 Interpretive Statements Sinus tachycardia Please click the below link to view image of tracing.
[2025-06-19 21:04] VITALS: PULSE 112; RESP 36; O2SAT 96
--- NOTE | 2025-06-19 21:15 | ED.PDOC ---
SOB-HPI HPI Comments 74-year-old male who came to ER via EMS for shortness of breath. Patient does have history of hypertension, diabetes, CHF on home oxygen at 3 L/min. Complaining of shortness of breath for the past 20 minutes. Was saturating 60% at 3 L/min the on scene. Patient was placed on CPAP, was given breathing treatments, saturation improved to 89% while on the way to the ER. Noted systolic blood pressure over 200 initially, upon arrival it was down to 182/84 mm Hg Chief Complaint: Shortness of Breath Time Seen by MD: 21:15 Primary Care Provider: JENN Reviewed notes: Rn Case Manager Notes Information Source: Patient, Emergency Med Personnel Mode of Arrival: EMS Severity: Moderate Timing: Minutes Past Medical History PAST MEDICAL HISTORY: CHF, DM, HTN Surgical History: Cholecystectomy, Tonsillectomy Family History Family History: Reviewed,noncontributory to illness Social History Smoker: Non-Smoker Alcohol: Denies ETOH Use Drugs: Denies Drug Use Lives In: Home Constitutional: denies: chills, diaphoresis, fatigue, fever, malaise, sweats, weakness, others EENTM: denies: blurred vision, double vision, ear bleeding, ear discharge, ear drainage, ear pain, ear ringing, eye pain, eye redness, hearing loss, mouth pain, mouth swelling, nasal discharge, nose bleeding, nose congestion, nose pain, photophobia, tearing, throat pain, throat swelling, voice changes, others Respiratory: reports: shortness of breath; denies: cough, hemoptysis, orthopnea, SOB at rest, SOB with excertion, stridor, wheezing, others Cardiovascular: denies: chest pain, dizzy spells, diaphoresis, Dyspnea on exertion, edema, irregular heart beat, left arm pain, lightheadedness, palpitations, PND, syncope, others Gastrointestinal: denies: abdomen distended, abdominal pain, blood streaked bowels, constipated, diarrhea, dysphagia, difficulty swallowing, hematemesis, melena, nausea, poor appetite, poor fluid intake, rectal bleeding, rectal pain, vomiting, others Genitourinary: denies: burning, dysuria, flank pain, frequency, hematuria, incontinence, penile discharge, penile sore, pain, testicle pain, testicle swelling, urgency, others Neurological: denies: dizziness, fainting, headache, left sided numbness, left sided weakness, numbness, paresthesia, pre-existing deficit, right sided numbness, right sided weakness, seizure, speech problems, tingling, tremors, weakness, others Musculoskeletal: denies: back pain, gout, joint pain, joint swelling, muscle pain, muscle stiffness, neck pain, others Integumetry: denies: bruises, change in color, change in hair/nails, dryness, laceration, lesions, lumps, rash, wounds, others Allergic/Immunocompromised: denies: Difficulty Healing, Frequent Infections, Hives, Itching, others Hematologic/Lymphatic: denies: anemia, blood clots, easy bleeding, easy bruising, swollen glands, others Endocrine: denies: excessive hunger, excessive sweating, excessive thirst, excessive urination, flushing, intolerance to cold, intolerance to heat, unexplained weight gain, unexplained weight loss, others Psychiatric: denies: anxiety, bipolar disorder, depression, hopeless, panic disorder, schizophrenia, sleepless, suicidal, others Physical Exam General Appearance: No Apparent Distress, Normal HEENT: Normal ENT Inspection, Pharynx Normal, TMs Normal Neck: Full Range of Motion, Non-Tender, Normal, Normal Inspection Respiratory: Chest Non-Tender, Lungs Clear, No Accessory Muscle Use, No Respiratory Distress, Normal Breath Sounds Cardiovascular: No Edema, No JVD, No Murmur, No Gallop, Normal Peripheral Pulses, Regular Rate/Rhythm Breast Exam: Deferred Gastrointestinal: No Organomegaly, Non Tender, No Pulsatile Mass, Normal Bowel Sounds, Soft Genitalia: Deferred Pelvic: Deferred Rectal: Deferred Extremities: No calf tenderness, Normal capillary refill, Normal inspection, Normal range of motion, Non-tender, No pedal edema Musculoskeletal : Apperance: Normal Neurologic: Alert, pediatric sports medicine specialist II-XII nml as Tested, No Motor Deficits, Normal Affect, Normal Mood, No Sensory Deficits Cerebellar Function: Normal Reflexes: Normal Skin: Dry, Normal Color, Warm Lymphatic: No Adenopathy EKG EKG : Pulse Rate (adult): 107 Cardiac Rhythm: ST Was a procedure done? Was a procedure done?: No Differential Dx Differential Diagnosis: Asthma, Bronchitis, CHF, COPD, Pneumonia, Respiratory Distress X-Ray, Labs, Meds, VS Vital Signs Date Time Temp Pulse Resp B/P (MAP) Pulse Ox O2 Delivery O2 Flow Rate FiO2 06/19/25 22:43 112 Facial BiPAP Mask 55 06/19/25 21:15 107 06/19/25 21:04 98.8 111 35 142/65 (90) 97 98.8 06/19/25 21:04 112 36 96 Bi-Pap+ 55 55 06/19/25 20:46 97.2 123 32 182/84 94 97.2 06/19/25 20:46 34 100 Bi-Pap+ 55 55 06/19/25 20:46 107 06/19/25 20:46 80 Facial BiPAP Mask 55 Lab Test 06/19/25 22:38 06/19/25 22:29 06/19/25 20:47 Range/Units Lactic Acid Level Pending 3.2 *H 0.4-2.0 mmol/L Blood Gas Specimen Type Venous Blood Gas Sample Site Vbg - n/a Blood Gas Patient Temperature 37.0 Arterial Blood Date Drawn [id number] Jarrod Test N/a Venous Blood pH 7.343 7.320-7.430 Venous Blood pCO2 at Patient Temp 38.3 38.0-54.0 mmHg Venous Blood pO2 at Patient Temp 50.0 H 23.0-48.0 mmHg Venous Blood HCO3 20.3 L 22.0-29.0 mmol/L Venous Blood Base Excess -4.8 L -2.0-3.0 mmol/L Blood Gas Set Respiration Rate 14.0 Blood Gas Modality Mask - bipap FiO2 % 55.0 Blood Gas EPAP 5 Blood Gas IPAP 14 White Blood Count 12.7 H 4.4-10.8 10^3/uL Red Blood Count 4.24 L 4.5-5.90 10^6/uL Hemoglobin 12.5 L 13.5-17.5 g/dL Hematocrit 38.3 L 41.0-53.0 % Mean Corpuscular Volume 90.3 80.0-100.0 fL Mean Corpuscular Hemoglobin 29.6 28.0-32.0 pg Mean Corpuscular Hemoglobin Concent 32.8 32.0-36.0 g/dL Red Cell Distribution Width 15.2 H 11.8-14.3 % Platelet Count 224 140-450 10^3/uL Mean Platelet Volume 9.2 6.9-10.8 fL Neutrophils (%) (Auto) 75.3 37.0-80.0 % Lymphocytes (%) (Auto) 12.4 10.0-50.0 % Monocytes (%) (Auto) 6.4 0.0-12.0 % Eosinophils (%) (Auto) 5.7 0.0-7.0 % Basophils (%) (Auto) 0.2 0.0-2.0 % Neutrophils # (Auto) 9.6 H 1.6-8.6 10 ^3/uL Lymphocytes # (Auto) 1.6 0.4-5.4 10 ^3/uL Monocytes # (Auto) 0.8 0-1.3 10 ^3/uL Eosinophils # (Auto) 0.7 0-0.8 10 ^3/uL Basophils # (Auto) 0 0-0.2 10 ^3/uL Nucleated Red Blood Cells 0.0 % Prothrombin Time 11.3 9.3-11.8 sec Prothrombin Time INR 1.07 0.9-1.15 Activated Partial Thromboplast Time 30.5 24.5-34.5 SEC Sodium Level 137 136-145 mmol/L Potassium Level 5.0 3.5-5.1 mmol/L Chloride Level 102 98-107 mmol/L Carbon Dioxide Level 24 20-31 mmol/L Anion Gap 11 5-15 Blood Urea Nitrogen 30 H 9-23 mg/dL Creatinine 1.47 H 0.700-1.30 mg/dL Glomerular Filtration Rate Calc 49 >90 mL/min BUN/Creatinine Ratio 20.4 H 10.0-20.0 Serum Glucose 289 H 74-106 mg/dL Calcium Level 9.7 8.7-10.4 mg/dL Magnesium Level 1.9 1.6-2.6 mg/dL Total Bilirubin 1.0 0.2-1.0 mg/dL Aspartate Amino Transferase (AST) 10 L 13-40 U/L Alanine Aminotransferase (ALT) 10 7-40 U/L Alkaline Phosphatase 100 46-116 U/L B-Type Natriuretic Peptide 33.59 0-100 pg/mL Total Protein 8.0 5.7-8.2 g/dL Albumin 4.5 3.2-4.8 g/dL Current Medications Medications (Trade) Dose Ordered Sig/Raghu Route Start Time Stop Time Status Last Admin Methylprednisolone Sodium Succinate (Solu Medrol) 125 mg ONCE ONCE IV 06/19/25 21:00 06/19/25 21:03 DC 06/19/25 22:06 Magnesium Sulfate/ Dextrose 100 ml @ 100 mls/hr ONCE ONCE IV 06/19/25 21:00 06/19/25 21:59 DC 06/19/25 22:06 Albuterol (Ventolin Medneb) 5 mg ONCE ONCE NEB 06/19/25 21:30 06/19/25 21:32 DC 06/19/25 21:51 Ipratropium Mode (Atrovent Medneb) 0.5 mg ONCE ONCE NEB 06/19/25 21:30 06/19/25 21:32 DC 06/19/25 21:51 CHEST RADIOGRAPH Indication: SOB Technique: Single frontal view of the chest was obtained COMPARISON: XY CHEST TWO VIEWS ROUTINE on DOS: 07/06/24, XY CHEST XRAY 1 VIEW on DOS: 02/29/24 FINDINGS: Cardiac silhouette is borderline in size. Diffuse prominence of the pulmonary vasculature and slight prominence of the interstitium. Mild hazy opacity th roughout both lungs . Bones and soft tissues demonstrate no significant abnormality. IMPRESSION: Pulmonary venous congestion. Hazy opacity throughout both lungs which could be related to edema or atypical infection/viral pneumonia. Time of 1ST Reevaluation: 21:12 Reevaluation 1ST: Unchanged Patient Education/Counseling: Diagnosis, Treatment Family Education/Counseling: No Family Present SEPSIS Sepsis Screen Date sepsis recognized/suspect: Jun 19, 2025 Time Sepsis recognized/suspect: 2039 Recent Procedure: No On Antibiotic Therapy: No Respiratory Rate >20: Yes Heart Rate >90: Yes Temp<36 C (96.8 F) or >38.3 C: No SBP <90 or MAP <65 mmHG: No New Acute Mental Status Change: No Is the patient on CPAP, BIPAP,: Yes Physician Orders Chest Portable (06/19/25 21:00) Blood Culture (06/19/25 21:00) BIPAP (06/19/25 20:45) Venous Blood Gas (06/19/25 22:15) Ceftriaxone Ivpb Rocephin (06/19/25 23:15) Azithromycin 500mg/250ml (Zithromax 500m (06/19/25 23:15) Vital Signs Date Time Temp Pulse Resp B/P (MAP) Pulse Ox O2 Delivery O2 Flow Rate FiO2 06/19/25 22:43 112 Facial BiPAP Mask 55 06/19/25 21:15 107 06/19/25 21:04 98.8 111 35 142/65 (90) 97 98.8 06/19/25 21:04 112 36 96 Bi-Pap+ 55 55 06/19/25 20:46 97.2 123 32 182/84 94 97.2 06/19/25 20:46 34 100 Bi-Pap+ 55 55 06/19/25 20:46 107 06/19/25 20:46 80 Facial BiPAP Mask 55 Laboratory Tests Test 06/19/25 20:47 06/19/25 22:38 Lactic Acid Level 3.2 mmol/L (0.4-2.0) *H Pending White Blood Count 12.7 10^3/uL (4.4-10.8) H Medications Medications Dose Ordered Sig/Raghu Route Start Time Stop Time Status Last Admin Dose Admin Albuterol 5 mg ONCE ONCE NEB 06/19/25 21:30 06/19/25 21:32 DC 06/19/25 21:51 Ipratropium Mode 0.5 mg ONCE ONCE NEB 06/19/25 21:30 06/19/25 21:32 DC 06/19/25 21:51 Magnesium Sulfate/ Dextrose 100 ml @ 100 mls/hr ONCE ONCE IV 06/19/25 21:00 06/19/25 21:59 DC 06/19/25 22:06 Methylprednisolone Sodium Succinate 125 mg ONCE ONCE IV 06/19/25 21:00 06/19/25 21:03 DC 06/19/25 22:06 Departure 1 Departure Time of Disposition: 23:05 Impression: Primary Impression: COPD exacerbation Additional Impressions: Pneumonitis Respiratory failure with hypoxia Disposition: ADMITTED INPATIENT Admit to: Tele Condition: Guarded Comments 74 year old male with severe SOB, per EMS was 58% o2 sat on room air MEDICAL DIR. patient given breathing treatments, solumedrol , magnesium and IV antibiotics with partial improvement. Pneumonitis on CXR. lactic acid elevated, acute renal injury. patient will need admission for supportive care and further workup Critical Care Note Critical Care Time?: Yes (35 min-critical care time only) Critical care comment: Total critical care time: Approximately 36 minutes Due to a high probability of clinically significant, life threatening deterioration, the patient required my highest level of preparedness to intervene emergently and I personally spent this critical care time directly and personally managing the patient. This critical care time included obtaining a history; examining the patient; pulse oximetry; ordering and review of studies; arranging urgent treatment with development of a management plan; evaluation of patient's response to treatment; frequent reassessment; and, discussions with other providers. This critical care time was performed to assess and manage the high probability of imminent, life-threatening deterioration that could result in multi-organ failure. It was exclusive of separately billable procedures and treating other patients. Stability Stability form required: No Heart Score Heart Score: Heart Score Response (Comments) Value History Moderate Suspicious 1 EKG Repolarization Disturb 1 Age >65 2 Risk Factors >3 or Hx ASHD 2 Troponin Normal limit 0 Total 6 I personally scribed for RICARDO PATTON MD ([email or web address]) on 06/19/25 at 21:15. Electronically submitted by Rickey Sanabria ([email or web address]). I personally scribed for RICARDO PATTON MD ([email or web address]) on 06/19/25 at 22:16. Electronically submitted by Rickey Sanabria ([email or web address]). RICARDO PATTON MD Jun 19, 2025 21:15
[2025-06-19 21:33] LABS: Hematocrit 38.3 % (41.0-53.0); Hemoglobin 12.5 g/dL (13.5-17.5); Mean Corpuscular Hemoglobin 29.6 pg (28.0-32.0); Mean Corpuscular Volume 90.3 fL (80.0-100.0); Nucleated Red Blood Cells % 0.0 %
[2025-06-19 21:49] LABS: Alanine Aminotransferase 10 U/L (7-40); Albumin 4.5 g/dL (3.2-4.8); Alkaline Phosphatase 100 U/L (46-116); Anion Gap 11 (5-15); BUN/Creatinine Ratio 20.4 (10.0-20.0); Bilirubin, Total 1.0 mg/dL (0.2-1.0); Calcium 9.7 mg/dL (8.7-10.4); Carbon Dioxide 24 mmol/L (20-31); Chloride 102 mmol/L (98-107); Magnesium 1.9 mg/dL (1.6-2.6); Potassium 5.0 mmol/L (3.5-5.1); Sodium 137 mmol/L (136-145); Total Protein 8.0 g/dL (5.7-8.2)
[2025-06-19 21:50] LABS: INR 1.07 (0.9-1.15); Partial Thromboplastin Time 30.5 SEC (24.5-34.5); Prothrombin Time 11.3 sec (9.3-11.8)
[2025-06-19] MEDS: ALBUTEROL SULF 2.5 MG/0.5ML(0.5%) NEB SOLN NEB ONE (21:51)
[2025-06-19] MEDS: IPRATROPIUM BROM 0.5 MG/2.5ML INH SOL NEB ONE (21:51)
[2025-06-19 21:52] LABS: Blood Urea Nitrogen 30 mg/dL (9-23); Glucose 289 mg/dL (74-106)
[2025-06-19 21:54] LABS: Lactic Acid w/Reflex 3.2 mmol/L (0.4-2.0)
[2025-06-19] MEDS: methylPREDNISolone SOD SUCC 125 MG/2 ML VL IV ONE (22:06)
[2025-06-19] MEDS: MAGNESIUM SULFATE 1GM/100ML 100 ML IV ONE (22:06)
--- NOTE | 2025-06-19 22:08 | DVH ---
CHEST RADIOGRAPH Indication: SOB Technique: Single frontal view of the chest was obtained COMPARISON: XY CHEST TWO VIEWS ROUTINE on DOS: 07/06/24, XY CHEST XRAY 1 VIEW on DOS: 02/29/24 FINDINGS: Cardiac silhouette is borderline in size. Diffuse prominence of the pulmonary vasculature and slight prominence of the interstitium. Mild hazy opacity throughout both lungs . Bones and soft tissues demonstrate no significant abnormality. IMPRESSION: Pulmonary venous congestion. Hazy opacity throughout both lungs which could be related to edema or atypical infection/viral pneumonia.
[2025-06-19 22:45] VITALS: BP 153/74; PULSE 112; O2SAT 95
[2025-06-20] VITALS (23 sets, daily range): BP systolic 122–148; BP diastolic 45–93; PULSE 67–105; RESP 18–44; TEMP 97.2–98.3; O2SAT 73–100
[2025-06-20] MEDS: SODIUM CHLORIDE 0.9% 1,000 ML IV ONE
--- NOTE | 2025-06-20 00:02 | DVHHPRES ---
History of Present Illness Resident Creating Document: RENAE AVENDANO History of Present Illness Mr. Sy Youssef, 74-year-old male with previous history of hypertension, type 2 diabetes mellitus on insulin, diastolic heart failure ? COPD on home oxygen 3 L presented to the ER with progressive shortness of breaths, patient was on BiPAP, so was unable to provide full history. However patient was A&O x4. The patient denies any chest pain, fever, denies any sick contacts or travel history. Past medical history: Hypertension, insulin-dependent diabetes mellitus, grade 1 diastolic dysfunction or diastolic heart failure?, COPD on home oxygen, recurrent pneumonia Past surgical history: Arrival to update because patient is on BiPAP Allergies: No known allergies Home medications: Aspirin 81 mg, atorvastatin 20 mg, furosemide 20 mg, glipizide 10 mg, levofloxacin, metformin, sitagliptin. Review of Systems Respiratory: SOB with excertion Allergies: Coded Allergies: NO KNOWN ALLERGIES (Unverified , 10/21/10) Exam Vital Signs Vital Signs Date Time Temp Pulse Resp B/P (MAP) Pulse Ox O2 Delivery O2 Flow Rate FiO2 06/19/25 22:45 112 153/74 95 Facial BiPAP Mask 55 06/19/25 21:04 98.8 35 98.8 Exam Pt is lying on bed General Appearance: Alert, Oriented X3, Cooperative, Mild distress HEENT: Atraumatic, Mucous membranes moist/pink Respiratory: Clear to auscultation, Normal air movement, bilateral crackles over both lung jose Cardiovascular: Regular rate, Normal S1, Normal S2, No murmurs Abdominal/ : Active bowel sounds, Soft, no distention, no tenderness Extremities: Leg edema, Normal pulses, No tenderness/swelling Skin: No Significant rash, except past surgical scars Neuro: Normal speech, sensorimotor deficits none Psych/Mental Status: Mental status NL, Mood NL Nurse was there as head teller during examination Labs/Xrays Labs Test 06/19/25 22:38 06/19/25 22:29 06/19/25 20:47 Range/Units Lactic Acid Level 3.3 *H 0.4-2.0 mmol/L Blood Gas Specimen Type Venous Blood Gas Sample Site Vbg - n/a Blood Gas Patient Temperature 37.0 Arterial Blood Date Drawn [id number] Jarrod Test N/a Venous Blood pH 7.343 7.320-7.430 Venous Blood pCO2 at Patient Temp 38.3 38.0-54.0 mmHg Venous Blood pO2 at Patient Temp 50.0 H 23.0-48.0 mmHg Venous Blood HCO3 20.3 L 22.0-29.0 mmol/L Venous Blood Base Excess -4.8 L -2.0-3.0 mmol/L Blood Gas Set Respiration Rate 14.0 Blood Gas Modality Mask - bipap FiO2 % 55.0 Blood Gas EPAP 5 Blood Gas IPAP 14 White Blood Count 12.7 H 4.4-10.8 10^3/uL Red Blood Count 4.24 L 4.5-5.90 10^6/uL Hemoglobin 12.5 L 13.5-17.5 g/dL Hematocrit 38.3 L 41.0-53.0 % Mean Corpuscular Volume 90.3 80.0-100.0 fL Mean Corpuscular Hemoglobin 29.6 28.0-32.0 pg Mean Corpuscular Hemoglobin Concent 32.8 32.0-36.0 g/dL Red Cell Distribution Width 15.2 H 11.8-14.3 % Platelet Count 224 140-450 10^3/uL Mean Platelet Volume 9.2 6.9-10.8 fL Neutrophils (%) (Auto) 75.3 37.0-80.0 % Lymphocytes (%) (Auto) 12.4 10.0-50.0 % Monocytes (%) (Auto) 6.4 0.0-12.0 % Eosinophils (%) (Auto) 5.7 0.0-7.0 % Basophils (%) (Auto) 0.2 0.0-2.0 % Neutrophils # (Auto) 9.6 H 1.6-8.6 10 ^3/uL Lymphocytes # (Auto) 1.6 0.4-5.4 10 ^3/uL Monocytes # (Auto) 0.8 0-1.3 10 ^3/uL Eosinophils # (Auto) 0.7 0-0.8 10 ^3/uL Basophils # (Auto) 0 0-0.2 10 ^3/uL Nucleated Red Blood Cells 0.0 % Prothrombin Time 11.3 9.3-11.8 sec Prothrombin Time INR 1.07 0.9-1.15 Activated Partial Thromboplast Time 30.5 24.5-34.5 SEC Sodium Level 137 136-145 mmol/L Potassium Level 5.0 3.5-5.1 mmol/L Chloride Level 102 98-107 mmol/L Carbon Dioxide Level 24 20-31 mmol/L Anion Gap 11 5-15 Blood Urea Nitrogen 30 H 9-23 mg/dL Creatinine 1.47 H 0.700-1.30 mg/dL Glomerular Filtration Rate Calc 49 >90 mL/min BUN/Creatinine Ratio 20.4 H 10.0-20.0 Serum Glucose 289 H 74-106 mg/dL Calcium Level 9.7 8.7-10.4 mg/dL Magnesium Level 1.9 1.6-2.6 mg/dL Total Bilirubin 1.0 0.2-1.0 mg/dL Aspartate Amino Transferase (AST) 10 L 13-40 U/L Alanine Aminotransferase (ALT) 10 7-40 U/L Alkaline Phosphatase 100 46-116 U/L B-Type Natriuretic Peptide 33.59 0-100 pg/mL Total Protein 8.0 5.7-8.2 g/dL Albumin 4.5 3.2-4.8 g/dL SEPSIS Sepsis Screen Date sepsis recognized/suspect: Jun 19, 2025 Time Sepsis recognized/suspect: 2235 Recent Procedure: No On Antibiotic Therapy: No Respiratory Rate >20: Yes Heart Rate >90: Yes Temp<36 C (96.8 F) or >38.3 C: No SBP <90 or MAP <65 mmHG: No New Acute Mental Status Change: No Is the patient on CPAP, BIPAP,: Yes Physician Orders Chest Portable (06/19/25 21:00) Blood Culture (06/19/25 21:00) BIPAP (06/19/25 20:45) Venous Blood Gas (06/19/25 22:15) Azithromycin 500mg/250ml (Zithromax 500m (06/19/25 23:15) NS (06/20/25 00:00) Azithromycin 500mg/250ml (Zithromax 500m (06/20/25 10:00) Ceftriaxone Ivpb Rocephin (06/20/25 09:00) Covid19 Antigen Marlen (06/19/25 ) Rapid Influenza A&B (06/19/25 23:58) Mrsa Screen (06/19/25 23:58) Urinalysis (06/19/25 23:58) Drug Screen (06/19/25 23:58) Vital Signs Date Time Temp Pulse Resp B/P (MAP) Pulse Ox O2 Delivery O2 Flow Rate FiO2 06/19/25 22:45 112 153/74 95 Facial BiPAP Mask 55 06/19/25 22:43 112 Facial BiPAP Mask 55 06/19/25 21:15 107 06/19/25 21:04 98.8 111 35 142/65 (90) 97 98.8 06/19/25 21:04 112 36 96 Bi-Pap+ 55 55 06/19/25 20:46 97.2 123 32 182/84 94 97.2 06/19/25 20:46 34 100 Bi-Pap+ 55 55 06/19/25 20:46 107 06/19/25 20:46 80 Facial BiPAP Mask 55 Laboratory Tests Test 06/19/25 20:47 06/19/25 22:38 Lactic Acid Level 3.2 mmol/L (0.4-2.0) *H 3.3 mmol/L (0.4-2.0) *H White Blood Count 12.7 10^3/uL (4.4-10.8) H Medications Medications Dose Ordered Sig/Raghu Route Start Time Stop Time Status Last Admin Dose Admin Albuterol 5 mg ONCE ONCE NEB 06/19/25 21:30 06/19/25 21:32 DC 06/19/25 21:51 5 MG Ceftriaxone Sodium 50 ml @ 100 mls/hr ONCE ONCE IV 06/19/25 23:15 06/19/25 23:44 DC 06/19/25 23:20 100 MLS/HR Ipratropium [place] 0.5 mg ONCE ONCE NEB 06/19/25 21:30 06/19/25 21:32 DC 06/19/25 21:51 0.5 MG Magnesium Sulfate/ Dextrose 100 ml @ 100 mls/hr ONCE ONCE IV 06/19/25 21:00 06/19/25 21:59 DC 06/19/25 22:06 100 MLS/HR Methylprednisolone Sodium Succinate 125 mg ONCE ONCE IV 06/19/25 21:00 06/19/25 21:03 DC 06/19/25 22:06 125 MG Assessment/Plan Assessment/Plan Acute hypoxic respiratory failure on BiPAP Exacerbation of COPD Sepsis due to Pneumonia with viral/atypical/Gram-positive or Gram-negative organism History of pulmonary fibrosis -CXR: Pulmonary venous congestion, hazy opacity throughout both lungs due to edema or atypical infection/viral pneumonia -IV fluid -IV ceftriaxone and azithromycin -BiPAP(IPAP 10, EPAP 5) -oxygen by nasal cannula -breathing treatment with levalbuterol and ipratropium -IV methylprednisolone -patient transferred to [facility]: PH 7.247 pCO2 41.3 PO2 85.1, bicarb wound 17.6 -CT chest ordered due to recurrent pneumonia, possible mass Uncontrolled type 2 diabetes mellitus -HbA1c ordered -mild insulin sliding scale Diastolic heart failure Grade 1 diastolic dysfunction Hypertensive heart disease? Echocardiography on 07/10/2024: Overall normal left ventricular size and dimension. With a borderline normal left ventricular systolic function at 50%. There is mild inferior wall hypokinesia. There is a grade 1 diastolic dysfunction. No other abnormality detected Held home medication Lasix due to sepsis GI prophylaxis: Pantoprazole DVT prophylaxis: Lovenox Diet: Cardiac and diabetic Goals of care discussed with the patient for more than 27 minutes: Full code [facility] Case discussed with Dr. Johnson , patient and RN Plan discussed with: Patient, Other (RN) My Orders Orders - RENAE AVENDANO RESIDENT Procedure Category Date Status Time NS PHA 06/20/25 Verified 00:00 Azithromycin PHA 06/20/25 Verified 500mg/250ml 10:00 Ceftriaxone Ivpb PHA 06/20/25 Verified Rocephin 09:00 Covid19 Antigen Marlen LAB 06/19/25 Verified Rapid Influenza A&B LAB 06/19/25 Verified 23:58 Mrsa Screen MICHELE 06/19/25 Verified 23:58 Urinalysis LAB 06/19/25 Verified 23:58 Drug Screen LAB 06/19/25 Verified 23:58 Date of Service: Jun 19, 2025 Billing Provider: FUNMILAYO JOHNSON MD Common Visit Codes: [id number] INP/OBS CARE (HIGH) Secondary Visit Codes: [id number] CARE PLAN 30 MINUTES RENAE AVENDANO Jun 20, 2025 00:02
[2025-06-20] MEDS: LORazepam 2MG/ML-1ML VIAL IV PRN (01:25)
[2025-06-20 01:59] LABS: COVID19 ANTIGEN SOFIA FIA NEGATIVE (NEGATIVE)
[2025-06-20 02:21] LABS: Base Excess -9.2 mmol/L (-2.0-3.0)
[2025-06-20] MEDS ORDERED: DEXTROSE (50%) 50ML SYRG IV PRN ×2 (02:45→08:00)
[2025-06-20] MEDS: SODIUM BICARB 8.4% 50Meq/50ml SYR Vial IV ONE (02:55)
[2025-06-20 03:50] LABS: Urine Protein, UAD Negative (Negative)
[2025-06-20 03:58] LABS: Amphetamine Screen, Urine Neg (NEGATIVE); Barbiturate Scree,Urine Neg (NEGATIVE); Benzodiazephine Screen, Urine Neg (NEGATIVE); Cannabinoid Screen, Urine Neg (NEGATIVE); Cocaine Screen, Urine Neg (NEGATIVE); Opiate Scree,Urine Neg (NEGATIVE); Phencyclidine Screen, Urine Neg (NEGATIVE)
[2025-06-20 04:05] LABS: Base Excess -4.8 mmol/L (-2.0-3.0)
[2025-06-20] MEDS: PANTOPRAZOLE 40 MG TAB PO SCH (06:00)
[2025-06-20] MEDS: LEVALBUTEROL HCL 1.25 MG/3 ML NEB NEB SCH ×3 (06:01→11:09)
[2025-06-20] MEDS: IPRATROPIUM BROM 0.5 MG/2.5ML INH SOL NEB PRN (06:02)
[2025-06-20] MEDS: InsuLIN REG 1unit/0.01ml Soln (100units/ml) SC SCH ×2 (06:58→08:25)
[2025-06-20] MEDS: ACCU-CHEK COMFORT CURVE STRIP VI SCH ×2 (06:59→08:24)
[2025-06-20] MEDS: INSULIN LANTUS (GLARGINE) 1 /0.01ml (100units/ml) SC SCH (06:59)
[2025-06-20 07:28] LABS: Hematocrit 35.7 % (41.0-53.0); Hemoglobin 11.8 g/dL (13.5-17.5); Mean Corpuscular Hemoglobin 29.7 pg (28.0-32.0); Mean Corpuscular Volume 89.6 fL (80.0-100.0); Nucleated Red Blood Cells % 0.0 %
[2025-06-20 07:29] LABS: Anion Gap 10 (5-15); Carbon Dioxide 24 mmol/L (20-31); Chloride 102 mmol/L (98-107); Sodium 136 mmol/L (136-145)
[2025-06-20 07:30] LABS: Calcium 9.5 mg/dL (8.7-10.4)
[2025-06-20 07:35] LABS: BUN/Creatinine Ratio 24.1 (10.0-20.0)
[2025-06-20 07:53] LABS: Blood Urea Nitrogen 32 mg/dL (9-23); Glucose 441 mg/dL (74-106); Potassium 5.1 mmol/L (3.5-5.1)
[2025-06-20] MEDS ORDERED: IPRATROPIUM BROM 0.5 MG/2.5ML INH SOL NEB SCH (08:00)
[2025-06-20] MEDS ORDERED: LEVALBUTEROL HCL 1.25 MG/3 ML NEB NEB SCH (08:00)
[2025-06-20] MEDS: IPRATROPIUM BROM 0.5 MG/2.5ML INH SOL NEB SCH (10:00)
[2025-06-20] MEDS: ENOXAPARIN SOD 40 MG/0.4 ML SYRINGE SC SCH (10:05)
[2025-06-20] MEDS: AZITHROMYCIN 500MG/250ML 250 ML IV SCH (10:06)
[2025-06-20] MEDS: methylPREDNISolone SOD SUCC 40 MG/ML VL IV SCH (10:06)
--- NOTE | 2025-06-20 10:44 | DVHPNRES ---
Progress Note Date Seen: Jun 20, 2025 Resident Creating Document: MARIA G SPARROW RESDIENT Medical Necessity Reason Pt with a Central, PICC or Fol: No Subjective Review of Systems This is a 74-year-old gentleman with past medical history of hypertension, diabetes type 2, COPD on 3 L per minute of oxygen at home, diastolic heart failure came to the hospital due to progressively worsening shortness of breaths since 1 weeks. At bedside, the patient is using oxygen through nasal cannula but since 1 week shortness of breaths has worsened and could not improved with with the oxygen through nasal cannula. He denies chest pain, nausea, vomiting, fever, or any recent sick contacts/travel history. Upon hospital arrival, the patient was in severe shortness of breaths, could not improved with the oxygen through nasal cannula the patient was put on BiPAP. Patient was seen in ER with BiPAP. PMHx: hypertension, diabetes type 2, COPD on 3 L per minute of oxygen at home, diastolic heart failure PSHx: No significant past surgical his history Family history: Nonsignificant Social history: Ex-smoker, walk at the baseline, lives at home with the , denies any other drug use Home medication: Aspirin, albuterol inhaler, Trelegy, Januvia (sitagliptin), trazodone, Farxiga, furosemide 20 mg daily, amlodipine, glipizide Allergic history: No known allergy Patient seen and examined at the bedside. Patient is feeling better since admission but still complained of shortness of breaths on the patient is on BiPAP. Objective vital signs Vital Sign Date Time Temp Pulse Resp B/P (MAP) Pulse Ox O2 Delivery O2 Flow Rate FiO2 06/20/25 10:01 139/67 95 Facial BiPAP Mask 50 06/20/25 09:20 78 22 06/20/25 07:20 97.7 97.7 Total Intake and Output 06/19/25 06/19/25 06/20/25 15:00 23:00 07:00 Intake Total 100 ml Balance 100 ml medications Current Medications Medications Dose Ordered Sig/Raghu Route Start Time Stop Time Status Last Admin Dose Admin Azithromycin 250 ml @ 125 mls/hr DAILY IV 06/20/25 10:00 06/20/25 10:06 125 MLS/HR Ceftriaxone Sodium 50 ml @ 100 mls/hr DAILY@09 IV 06/20/25 09:00 06/20/25 09:12 100 MLS/HR Methylprednisolone Sodium Succinate 40 mg BID IV 06/20/25 10:00 06/20/25 10:06 40 MG Aspirin 81 mg DAILY PO 06/20/25 10:00 06/20/25 10:05 81 MG Atorvastatin Calcium 20 mg HS PO 06/20/25 22:00 Enoxaparin Sodium 40 mg DAILY SC 06/20/25 10:00 06/20/25 10:05 40 MG Pantoprazole Sodium 40 mg DAILY@0600 PO 06/20/25 06:00 Insulin Glargine 15 units QAM SC 06/20/25 07:00 06/20/25 06:59 15 UNITS Diagnostic Test (Pha) 1 strip Q6HR 06/20/25 08:16 06/20/25 08:24 1 STRIP Insulin Human Regular Q6HR SC 06/20/25 08:16 06/20/25 08:25 15 UNITS Dextrose 50 ml UD PRN IV 06/20/25 08:00 Ipratropium [place] 0.5 mg Q4HR NEB 06/20/25 10:00 06/20/25 10:00 0.5 MG Levalbuterol HCl 1.25 mg Q4HR NEB 06/20/25 10:00 Hold 06/20/25 10:01 1.25 MG Examination General Appearance: Alert, Oriented X3, Cooperative, in moderate respiratory restless HEENT: Atraumatic, PERRLA, EOMI, Mucous membrane moist/pink Respiratory: Bilateral rhonchi, with bilateral lower zone crackles Cardiovascular: Regular rate, Normal S1, Normal S2, No murmurs, no chest wall tenderness Abdominal: Normal bowel sounds, Soft, No tenderness, No hepatosplenomegaly, No masses Extremities: No clubbing, No cyanosis, No edema, Normal pulses, No tenderness/swelling Skin: No rashes, No breakdown, No significant lesion Neuro: Normal gait, Normal speech, Strength at 5/5 X4 ext, Normal tone, Sensation intact, Cranial nerves 3-12 NL, Reflexes 2+ Psych/Mental Status: Mental status NL, Mood NL laboratory and microbiology Laboratory Tests 06/20/25 06:57 Test 06/20/25 06:57 Range/Units Serum Glucose 441 #*H 74-106 mg/dL Labs and/or images reviewed: Labs reviewed by me, Image(s) reviewed by me Problem List/Assessment/Plan Problem List/Assessment/Plan Acute on chronic hypoxic/hypercarbic respiratory failure, likely due to COPD exacerbation/pneumonia Sepsis, due to above Acute COPD exacerbation Pneumonia, likely due to Gram-positive/Gram-negative bacteria Diabetes type 2 with hyperglycemia Hypertension CKD 3A Possible acute on chronic diastolic heart failure Chest x-ray showed bilateral diffuse infiltration Plan/recommendation: * Empiric antibiotic Rocephin and azithromycin * IV Solu-Medrol 40 mg b.i.d. * Nebulizer with the ipratropium albuterol * Insulin Lantus 15 units daily with moderate sliding scale * Continue home meds * IV fluid * IV lasix 20mg daily * Blood cultures/sputum culture/check echocardiogram * Continue oxygen therapy as indicated DIET: Cardiac diet DVT PROPHYLAXIS: Lovenox CODE STATUS: Goal of care discussed for 20minutes, full code DISPOSITION: Telemetry Patient's status and plan discussed with the patient. Case discussed with Dr. Jaime. Plan discussed with: Patient, Other (RN) My Orders My Orders Orders - MARIA G SPARROW Procedure Category Date Status Time Glucose Blood PHA 06/20/25 In Process (Accu-Chek Comfort 08:16 Insulin R (Human) PHA 06/20/25 In Process (Insulin R) 08:16 Dextrose 50% Syringe PHA 06/20/25 In Process 08:00 Echo 2d Mode Cardiac US 06/20/25 Logged DOP 07:55 Ipratropium Medneb PHA 06/20/25 In Process (Atrovent Medneb) 10:00 Levalbuterol Hcl PHA 06/20/25 In Process (Xopenex Medneb) 10:00 Date of Service: Jun 20, 2025 Billing Provider: CAROL SOLOMON MD Common Visit Codes: [id number] INP/OBS CARE(HIGH) Secondary Visit Codes: [id number] CARE PLAN 30 MINUTES (20 minutes) MARIA G SPARROW Jun 20, 2025 10:44 MAX JAIME MD Jun 23, 2025 13:13
[2025-06-20] MEDS ORDERED: SODIUM CHLORIDE 0.9% 1,000 ML IV ONE (10:45)
[2025-06-20 11:32] LABS: Base Excess -3.9 mmol/L (-2.0-3.0)
--- NOTE | 2025-06-20 12:26 | DVHSR ---
APPROVED REPORT EXAM: Two-dimensional and M-mode echocardiogram with Doppler and color Doppler. Blood Pressure: 147/78 mmHg INDICATION HF? RISK FACTORS Height: 5' 4", Weight: 160 DIMENSIONS LVDd 3.7 (3.8-5.7cm) LA (2D) 3.6 (1.9-4.0cm) Aortic Root 3.4 (2.0-3.7cm) LVDs 2.9 (2.5-4.0cm) LA (MM) (1.9-4.0cm) Aortic Cusp Exc 1.9 (1.5-2.0cm) EF (%) 45.0 (55-70%) Rt. Atrium 3.7 (1.9-4.0cm) Asc. Aorta cm IVSd 1.1 (0.7-1.1cm) RV (D) (1.8-2.4cm) PWd 1.1 (0.7-1.1cm) Mitral Valve Mitral Mitral Stenosis E wave 0.90m/s MV Mean GR. mmHg A wave 1.00m/s MV Peak GR. mmHg E/A ratio 0.9 2D MVA cm2 Aortic Valve Aortic Valve Aortic Stenosis V1 0.60m/s AO Mean GR. 1mmHg V2 0.80m/s AO Peak GR. 3mmHg LVOT Diameter 2.4 (1.8-2.4cm) Doppler LORE 3.39cm2 Conclusion lvef50% by visual estimate borderlne LVH normal rv function no severe valve abnormalities noted
[2025-06-20] MEDS: ATORVASTATIN 20 MG TAB PO SCH (20:54)
[2025-06-21] VITALS (21 sets, daily range): BP systolic 100–147; BP diastolic 43–78; PULSE 73–113; RESP 14–18; TEMP 98.2–98.8; O2SAT 93–100
[2025-06-21] MEDS: MELATONIN 5 MG TAB PO ONE (00:38)
[2025-06-21 05:28] LABS: Hematocrit 33.4 % (41.0-53.0); Hemoglobin 11.1 g/dL (13.5-17.5); Mean Corpuscular Hemoglobin 29.4 pg (28.0-32.0); Mean Corpuscular Volume 88.5 fL (80.0-100.0); Nucleated Red Blood Cells % 0.0 %
[2025-06-21 05:57] LABS: Albumin 4.0 g/dL (3.2-4.8); Alkaline Phosphatase 74 U/L (46-116); Anion Gap 9 (5-15); BUN/Creatinine Ratio 29.3 (10.0-20.0); Calcium 9.7 mg/dL (8.7-10.4); Carbon Dioxide 26 mmol/L (20-31); Chloride 103 mmol/L (98-107); Potassium 4.7 mmol/L (3.5-5.1); Sodium 138 mmol/L (136-145); Total Protein 6.9 g/dL (5.7-8.2)
[2025-06-21 05:58] LABS: Alanine Aminotransferase < 9 U/L (7-40); Bilirubin, Total 0.8 mg/dL (0.2-1.0); Blood Urea Nitrogen 36 mg/dL (9-23); Glucose 200 mg/dL (74-106)
--- NOTE | 2025-06-21 09:34 | DVH ---
Exam: CT CHEST WITHOUT CONTRAST Reason for study/Clinical History: Recurrent pneumonia, to rule out mass Comparison Study: XY CHEST PORTABLE on DOS: 06/19/25 Exam Date: 06/21/2025 08:54 AM TECHNIQUE: Multidetector CT of the chest was performed from the lung apices to the upper abdomen without the use of intravenous contract. Axial, coronal and sagittal multiplanar reformats were performed. Radiation Dose Information: CT Dose: CTDI volume is 7.67 mGy. Dose-length product is 259.81 mGy*cm The dose indicators for CT are the volume Computed Tomography (CT) Dose Index (CTDIvol) and the Dose Length Product (DLP), and are measured in units of mGy and mGy-cm, respectively. These indicators are not patient dose, but values generated from the CT scanner acquisition factors. The report includes radiation exposure data for exposures received during this examination. Findings: Lower neck: Unremarkable. Lungs and Pleura: Diffuse predominately ground-glass opacities throughout both lungs, associated with bronchiectasis and mild peripheral reticular and interstitial opacities. No suspicious lung mass is seen. No pleural effusions. Lymph nodes: Enlarged mediastinal lymph nodes including 1.3 cm right paratracheal lymph node. Cardiovascular and Mediastinum: No significant pericardial effusion. Scattered coronary calcifications. Osseous and soft tissues: No suspicious osseous lesions. Bilateral gynecomastia. Upper abdomen: No acute abnormality in the visualized upper abdomen. Cholecystectomy. IMPRESSION: Diffuse predominantly bilateral ground-glass opacities with reticular opacities in peripheral lungs. Findings could represent acute on chronic infectious/inflammatory process with unldering fibrosis. No large suspicious lung mass is noted; however, the exam is severely limited due to motion degradation. Enlarged mediastinal lymph nodes. While these could be reactive, neoplastic process is not excluded. Recommend 3 month follow-up CT chest to exclude underlying neoplasm.
--- NOTE | 2025-06-21 11:40 | DVHPNRES ---
Progress Note Date Seen: Jun 21, 2025 Resident Creating Document: MARIA G SPARROW RESDIENT Medical Necessity Reason Pt with a Central, PICC or Fol: No Subjective Review of Systems This is a 74-year-old gentleman with past medical history of hypertension, diabetes type 2, COPD on 3 L per minute of oxygen at home, diastolic heart failure came to the hospital due to progressively worsening shortness of breaths since 1 weeks. At bedside, the patient is using oxygen through nasal cannula but since 1 week shortness of breaths has worsened and could not improved with with the oxygen through nasal cannula. He denies chest pain, nausea, vomiting, fever, or any recent sick contacts/travel history. Upon hospital arrival, the patient was in severe shortness of breaths, could not improved with the oxygen through nasal cannula the patient was put on BiPAP. Patient was seen in ER with BiPAP. PMHx: hypertension, diabetes type 2, COPD on 3 L per minute of oxygen at home, diastolic heart failure PSHx: No significant past surgical his history Family history: Nonsignificant Social history: Ex-smoker, walk at the baseline, lives at home with the , denies any other drug use Home medication: Aspirin, albuterol inhaler, Trelegy, Januvia (sitagliptin), trazodone, Farxiga, furosemide 20 mg daily, amlodipine, glipizide Allergic history: No known allergy Patient seen and examined at the bedside. Patient is feeling better since admission. On 06/21, the patient seen and examined at the bedside. Patient is feeling better since admission but still complaining of shortness of breaths. Patient is on nasal cannula. Objective vital signs Vital Sign Date Time Temp Pulse Resp B/P (MAP) Pulse Ox O2 Delivery O2 Flow Rate FiO2 06/21/25 10:13 90 14 100 06/21/25 09:00 98.3 128/72 (90) 98.3 06/21/25 06:05 Nasal Cannula 3.0 06/21/25 06:05 32 Total Intake and Output 06/20/25 06/20/25 06/21/25 15:00 23:00 07:00 Intake Total 350 ml 240 ml 200 ml Output Total 1 ml Balance 350 ml 239 ml 200 ml medications Current Medications Medications Dose Ordered Sig/Raghu Route Start Time Stop Time Status Last Admin Dose Admin Azithromycin 250 ml @ 125 mls/hr DAILY IV 06/20/25 10:00 06/20/25 10:06 125 MLS/HR Ceftriaxone Sodium 50 ml @ 100 mls/hr DAILY@09 IV 06/20/25 09:00 06/20/25 09:12 100 MLS/HR Methylprednisolone Sodium Succinate 40 mg BID IV 06/20/25 10:00 06/20/25 20:55 40 MG Aspirin 81 mg DAILY PO 06/20/25 10:00 06/20/25 10:05 81 MG Atorvastatin Calcium 20 mg HS PO 06/20/25 22:00 06/20/25 20:54 20 MG Enoxaparin Sodium 40 mg DAILY SC 06/20/25 10:00 06/20/25 10:05 40 MG Pantoprazole Sodium 40 mg DAILY@0600 PO 06/20/25 06:00 06/21/25 05:45 40 MG Insulin Glargine 15 units QAM SC 06/20/25 07:00 06/21/25 05:55 15 UNITS Diagnostic Test (Pha) 1 strip Q6HR 06/20/25 08:16 06/21/25 05:55 1 STRIP Insulin Human Regular Q6HR SC 06/20/25 08:16 06/21/25 05:55 6 UNITS Dextrose 50 ml UD PRN IV 06/20/25 08:00 Ipratropium [place] 0.5 mg Q4HR NEB 06/20/25 10:00 06/21/25 10:02 0.5 MG Levalbuterol HCl 0.625 mg Q4HR NEB 06/20/25 11:09 06/21/25 10:02 0.625 MG Furosemide 20 mg DAILY PO 06/21/25 10:00 Examination General Appearance: Alert, Oriented X3, Cooperative, in moderate respiratory restless HEENT: Atraumatic, PERRLA, EOMI, Mucous membrane moist/pink Respiratory: Bilateral rhonchi, with bilateral lower zone crackles Cardiovascular: Regular rate, Normal S1, Normal S2, No murmurs, no chest wall tenderness Abdominal: Normal bowel sounds, Soft, No tenderness, No hepatospenomegaly, No masses Extremities: No clubbing, No cyanosis, No edema, Normal pulses, No tenderness/swelling Skin: No rashes, No breakdown, No significant lesion Neuro: Normal gait, Normal speech, Strength at 5/5 X4 ext, Normal tone, Sensation intact, Cranial nerves 3-12 NL, Reflexes 2+ Psych/Mental Status: Mental status NL, Mood NL laboratory and microbiology Laboratory Tests 06/21/25 04:58 Test 06/21/25 04:58 Range/Units Serum Glucose 200 #H 74-106 mg/dL Microbiology Date/Time Source Procedure Growth Status 06/20/25 07:56 Nose MRSA Screen - Final Complete 06/19/25 21:40 Blood Blood Culture - Preliminary NO GROWTH AFTER 24 HOURS OF INCUBATION. Resulted Labs and/or images reviewed: Labs reviewed by me, Image(s) reviewed by me Problem List/Assessment/Plan Problem List/Assessment/Plan Acute on chronic hypoxic/hypercarbic respiratory failure, likely due to COPD exacerbation/pneumonia Sepsis, due to above Acute COPD exacerbation Pneumonia, likely due to Gram-positive/Gram-negative bacteria Diabetes type 2 with hyperglycemia Hypertension CKD 3A Possible acute on chronic diastolic heart failure Chest x-ray showed bilateral diffuse infiltration Plan/recommendation: * Empiric antibiotic Rocephin and azithromycin * IV Solu-Medrol 40 mg b.i.d. * Nebulizer with the ipratropium albuterol * Insulin Lantus 15 units daily with moderate sliding scale * Continue home meds * IV fluid * IV lasix 20mg daily * Blood cultures/sputum culture/check echocardiogram DIET: Cardiac diet DVT PROPHYLAXIS: Lovenox CODE STATUS: Full code DISPOSITION: Telemetry Patient's status and plan discussed with the patient. Case discussed with Dr. Jaime. Plan discussed with: Patient, Other (RN) My Orders My Orders Orders - MARIA G SPARROW RESDISAIRA Procedure Category Date Status Time Transfer Orders XFER 06/20/25 Transmitted 15:41 Furosemide Tablet PHA 06/21/25 In Process (Lasix Tablet) 10:00 Date of Service: Jun 21, 2025 Billing Provider: MXA JAIME MD Common Visit Codes: [id number] INP/OBS CARE(HIGH) MARIA G SPARROW RESDIENT Jun 21, 2025 11:40 MAX JAIME MD Jun 23, 2025 13:16
[2025-06-21] MEDS: FUROSEMIDE 20 MG TAB PO SCH (13:08)
[2025-06-21] MEDS: MELATONIN 5 MG TAB PO PRN (23:11)
[2025-06-22] VITALS (11 sets, daily range): BP systolic 106–151; BP diastolic 58–81; PULSE 78–98; RESP 16–20; TEMP 97.7–98.6; O2SAT 94–100
[2025-06-22 05:34] LABS: Hematocrit 35.1 % (41.0-53.0); Hemoglobin 11.9 g/dL (13.5-17.5); Mean Corpuscular Hemoglobin 29.6 pg (28.0-32.0); Mean Corpuscular Volume 87.6 fL (80.0-100.0); Nucleated Red Blood Cells % 0.0 %
[2025-06-22 05:47] LABS: Alanine Aminotransferase 10 U/L (7-40); Albumin 4.1 g/dL (3.2-4.8); Alkaline Phosphatase 72 U/L (46-116); Anion Gap 9 (5-15); BUN/Creatinine Ratio 26.7 (10.0-20.0); Bilirubin, Total 0.9 mg/dL (0.2-1.0); Calcium 9.9 mg/dL (8.7-10.4); Carbon Dioxide 28 mmol/L (20-31); Chloride 100 mmol/L (98-107); Potassium 4.6 mmol/L (3.5-5.1); Sodium 137 mmol/L (136-145); Total Protein 7.2 g/dL (5.7-8.2)
[2025-06-22 05:49] LABS: Blood Urea Nitrogen 36 mg/dL (9-23); Glucose 143 mg/dL (74-106)
[2025-06-22] MEDS ORDERED: PRED20TA2 PO (11:07)
[2025-06-22] MEDS ORDERED: FLUT1AER17 IN (11:07)
[2025-06-22] MEDS ORDERED: AUG875T PO (11:07)
[2025-06-22] MEDS ORDERED: AZIT500T66 PO (11:07)
[2025-06-22] MEDS ORDERED: IPRATROPIUM BROM 0.5 MG/2.5ML INH SOL ONE (13:30)
[2025-06-22] MEDS ORDERED: LEVALBUTEROL HCL 1.25 MG/3 ML NEB ONE (13:30)
--- NOTE | 2025-06-22 15:00 | DVHDSRES ---
Discharge Summary Date of Admission Resident Creating Document: LAINEY DELAROSA RESIDENT Jun 20, 2025 at 00:04 Date of Discharge: Jun 22, 2025 Labs/Diagnostic Data: Laboratory Results Test 06/22/25 09:09 06/22/25 04:40 06/20/25 11:26 06/20/25 06:57 POC Glucose 258 mg/dl (70-106) White Blood Count 13.7 10^3/uL (4.4-10.8) Red Blood Count 4.01 10^6/uL (4.5-5.90) Hemoglobin 11.9 g/dL (13.5-17.5) Hematocrit 35.1 % (41.0-53.0) Mean Corpuscular Volume 87.6 fL (80.0-100.0) Mean Corpuscular Hemoglobin 29.6 pg (28.0-32.0) Mean Corpuscular Hemoglobin Concent 33.8 g/dL (32.0-36.0) Red Cell Distribution Width 15.0 % (11.8-14.3) Platelet Count 228 10^3/uL (140-450) Mean Platelet Volume 9.3 fL (6.9-10.8) Neutrophils (%) (Auto) 88.3 % (37.0-80.0) Lymphocytes (%) (Auto) 6.6 % (10.0-50.0) Monocytes (%) (Auto) 4.9 % (0.0-12.0) Eosinophils (%) (Auto) 0.1 % (0.0-7.0) Basophils (%) (Auto) 0.1 % (0.0-2.0) Neutrophils # (Auto) 12.1 10 ^3/uL (1.6-8.6) Lymphocytes # (Auto) 0.9 10 ^3/uL (0.4-5.4) Monocytes # (Auto) 0.7 10 ^3/uL (0-1.3) Eosinophils # (Auto) 0 10 ^3/uL (0-0.8) Basophils # (Auto) 0 10 ^3/uL (0-0.2) Nucleated Red Blood Cells 0.0 % Sodium Level 137 mmol/L (136-145) Potassium Level 4.6 mmol/L (3.5-5.1) Chloride Level 100 mmol/L (98-107) Carbon Dioxide Level 28 mmol/L (20-31) Anion Gap 9 (5-15) Blood Urea Nitrogen 36 mg/dL (9-23) Creatinine 1.35 mg/dL (0.700-1.30) Glomerular Filtration Rate Calc 54 mL/min (>90) BUN/Creatinine Ratio 26.7 (10.0-20.0) Serum Glucose 143 mg/dL (74-106) Calcium Level 9.9 mg/dL (8.7-10.4) Total Bilirubin 0.9 mg/dL (0.2-1.0) Aspartate Amino Transferase (AST) 10 U/L (13-40) Alanine Aminotransferase (ALT) 10 U/L (7-40) Alkaline Phosphatase 72 U/L (46-116) Total Protein 7.2 g/dL (5.7-8.2) Albumin 4.1 g/dL (3.2-4.8) Blood Gas Specimen Type Arterial Blood Gas Sample Site Left radial Blood Gas Patient Temperature 37.0 Arterial Blood Date Drawn [id number] Arterial Blood pH 7.384 (7.350-7.450) Arterial Blood Partial Pressure CO2 35.1 mmHg (35.0-48.0) Arterial Blood Partial Pressure O2 81.0 mmHg (83.0-108.0) Arterial Blood HCO3 20.5 mmol/L (21.0-28.0) Arterial Blood Oxygen Saturation 95.0 % (94.0-98.0) Arterial Blood Base Excess -3.9 mmol/L (-2.0-3.0) Arterial Blood Oxyhemoglobin 93.5 % (94.0-98.0) Arterial Blood Carboxyhemoglobin 1.3 % (0.5-1.5) Arterial Blood Methemoglobin 0.3 % (0.0-1.5) Arterial Blood Deoxyhemoglobin 4.9 % (0.0-5.0) Jarrod Test Yes Blood Gas Total Hemoglobin 13.00 g/dL (13.5-17.5) Blood Gas Set Respiration Rate 27.0 Blood Gas Modality Mask - bipap FiO2 % 50.0 Blood Gas EPAP 5 Blood Gas IPAP 14 Lactic Acid Level 1.1 mmol/L (0.4-2.0) Test 06/20/25 03:15 06/20/25 02:06 06/20/25 00:43 06/20/25 00:17 Urine Color Light-yellow (Yellow) Urine Clarity Clear (Clear) Urine pH 5.0 (5.0-9.0) Urine Specific [place] 1.024 (1.001-1.035) Urine Protein Negative (Negative) Urine Ketones Trace (Negative) Urine Blood Negative /uL (Negative) Urine Nitrite Negative (Negative) Urine Bilirubin Negative (Negative) Urine Urobilinogen Normal mg/dL (Negative) Urine Leukocyte Esterase Negative /uL (Negative) Urine RBC 1 /hpf (0 - 3) Urine Microscopic WBC < 1 /HPF (0-3) Urine Squamous Epithelial Cells Few /hpf (<5) Urine Bacteria None seen /hpf (None Seen) Urine Mucus Few (None Seen) Urine Glucose 4+ mg/dL (Normal) Urine Opiates Screen Neg (NEGATIVE) Urine Fentanyl Screen Neg (NEGATIVE) Urine Barbiturates Screen Neg (NEGATIVE) Urine Phencyclidine Screen Neg (NEGATIVE) Urine Amphetamines Screen Neg (NEGATIVE) Urine Benzodiazepines Screen Neg (NEGATIVE) Urine Cocaine Screen Neg (NEGATIVE) Urine Cannabinoids Screen Neg (NEGATIVE) Blood Gas Critical Value Read Back Yes Blood Gas Notified Whom sienna Aaron Blood Gas Notified Time [id number] Blood Gas Notified By Inventory Management Specialist ermias sosa Influenza Type A Antigen Negative (Negative) Influenza Type B Antigen Negative (Negative) SARS-CoV-2 Antigen (Rapid) Negative (NEGATIVE) Troponin I High Sensitivity 13 ng/L (</=54) Test 06/19/25 22:29 06/19/25 20:47 Venous Blood pH 7.343 (7.320-7.430) Venous Blood pCO2 at Patient Temp 38.3 mmHg (38.0-54.0) Venous Blood pO2 at Patient Temp 50.0 mmHg (23.0-48.0) Venous Blood HCO3 20.3 mmol/L (22.0-29.0) Venous Blood Base Excess -4.8 mmol/L (-2.0-3.0) Prothrombin Time 11.3 sec (9.3-11.8) Prothrombin Time INR 1.07 (0.9-1.15) Activated Partial Thromboplast Time 30.5 SEC (24.5-34.5) Hemoglobin A1c 8.0 % A1C (<5.7) Magnesium Level 1.9 mg/dL (1.6-2.6) B-Type Natriuretic Peptide 33.59 pg/mL (0-100) Other Laboratory Tests 06/22/25 04:40 Brief Hx & Hospital Course: Sy Youssef is a 74-year-old gentleman with past medical history of hypertension, diabetes type 2, COPD on 3 L of oxygen at home, diastolic heart failure came to the hospital due to progressively worsening shortness of breaths since 1 weeks. He denied chest pain, nausea, vomiting, fever, or any recent sick contacts/travel history. Upon hospital arrival, the patient was in severe shortness of breaths, could not improved with the oxygen through nasal cannula so was put on BiPAP. Labs revealed leukocytosis, acidosis, hyperglycemia and elevated creatinine levels, chest x-ray revealed pulmonary venous congestion. CT chest showed ground-glass opacities bilaterally with enlarged mediastinal lymph nodes. Final Diagnosis/Problems List COPD exacerbation Discharge Disposition: Home Discharge Instruct/Medications Diet: Cardiac 2g Na,low cholest Activity: No Restrictions, As Tolerated Follow Up/Referral: F/u with PCP in 7 days F/u with DC clinic in 7 days Medications: as per EHR Scheduled Amoxicillin & Pot Clavulanate (Augmentin Tablet), 875 MG PO BID Aspirin (Aspirin Low Dose), 81 MG PO DAILY Atorvastatin Calcium (Atorvastatin Calcium), 20 MG PO HS Azithromycin (Azithromycin), 500 MG PO DAILY Afwkipznfcf-Uajmdvgnxucv-Rbmtz (Trelegy Ellipta 200-62.5-25 Mcg/INH), 1 AER IN BID Furosemide (Lasix), 1 TAB PO DAILY Glipizide (Glipizide), 10 MG PO BID, (Reported) Metformin Hydrochloride (Metformin Hcl), 500 MG PO BIDWM, (Reported) Prednisone (Prednisone), 40 MG PO DAILY Sitagliptin Phosphate (Januvia), 100 MG PO DAILY, (Reported) Discontinued Medications Levofloxacin Hemihydrate (Levaquin 500 Mg), 1 TAB PO DAILY Discharge Statement: "Patient was advised to return to the ER or call 911 if any headaches, dizziness, shortness of breath, chest pain, abdominal pain, bleeding, fevers, or worsening of medical condition. Patient was counseled about treatment plan, medications, possible side effects, patientverbalized understanding. All questions were answered to the best of my ability. This discharge took greater then 30 minutes in planning, reviewing documentation, counseling the patient, and discussing with other team members." ASSESSMENT ASSESSMENT Assessment COPD exacerbation LAINEY DELAROSA RESIDENT Jun 22, 2025 15:00 MAX JAIME MD Jun 23, 2025 13:18
--- NOTE | 2025-06-22 15:14 | DVHDSRES ---
Discharge Summary Date of Admission Resident Creating Document: LAINEY DELAROSA RESIDENT Jun 20, 2025 at 00:04 Date of Discharge: Jun 22, 2025 Admitting Diagnosis Shortness of breath Labs/Diagnostic Data: Laboratory Results Test 06/22/25 09:09 06/22/25 04:40 06/20/25 11:26 06/20/25 06:57 POC Glucose 258 mg/dl (70-106) White Blood Count 13.7 10^3/uL (4.4-10.8) Red Blood Count 4.01 10^6/uL (4.5-5.90) Hemoglobin 11.9 g/dL (13.5-17.5) Hematocrit 35.1 % (41.0-53.0) Mean Corpuscular Volume 87.6 fL (80.0-100.0) Mean Corpuscular Hemoglobin 29.6 pg (28.0-32.0) Mean Corpuscular Hemoglobin Concent 33.8 g/dL (32.0-36.0) Red Cell Distribution Width 15.0 % (11.8-14.3) Platelet Count 228 10^3/uL (140-450) Mean Platelet Volume 9.3 fL (6.9-10.8) Neutrophils (%) (Auto) 88.3 % (37.0-80.0) Lymphocytes (%) (Auto) 6.6 % (10.0-50.0) Monocytes (%) (Auto) 4.9 % (0.0-12.0) Eosinophils (%) (Auto) 0.1 % (0.0-7.0) Basophils (%) (Auto) 0.1 % (0.0-2.0) Neutrophils # (Auto) 12.1 10 ^3/uL (1.6-8.6) Lymphocytes # (Auto) 0.9 10 ^3/uL (0.4-5.4) Monocytes # (Auto) 0.7 10 ^3/uL (0-1.3) Eosinophils # (Auto) 0 10 ^3/uL (0-0.8) Basophils # (Auto) 0 10 ^3/uL (0-0.2) Nucleated Red Blood Cells 0.0 % Sodium Level 137 mmol/L (136-145) Potassium Level 4.6 mmol/L (3.5-5.1) Chloride Level 100 mmol/L (98-107) Carbon Dioxide Level 28 mmol/L (20-31) Anion Gap 9 (5-15) Blood Urea Nitrogen 36 mg/dL (9-23) Creatinine 1.35 mg/dL (0.700-1.30) Glomerular Filtration Rate Calc 54 mL/min (>90) BUN/Creatinine Ratio 26.7 (10.0-20.0) Serum Glucose 143 mg/dL (74-106) Calcium Level 9.9 mg/dL (8.7-10.4) Total Bilirubin 0.9 mg/dL (0.2-1.0) Aspartate Amino Transferase (AST) 10 U/L (13-40) Alanine Aminotransferase (ALT) 10 U/L (7-40) Alkaline Phosphatase 72 U/L (46-116) Total Protein 7.2 g/dL (5.7-8.2) Albumin 4.1 g/dL (3.2-4.8) Blood Gas Specimen Type Arterial Blood Gas Sample Site Left radial Blood Gas Patient Temperature 37.0 Arterial Blood Date Drawn [id number] Arterial Blood pH 7.384 (7.350-7.450) Arterial Blood Partial Pressure CO2 35.1 mmHg (35.0-48.0) Arterial Blood Partial Pressure O2 81.0 mmHg (83.0-108.0) Arterial Blood HCO3 20.5 mmol/L (21.0-28.0) Arterial Blood Oxygen Saturation 95.0 % (94.0-98.0) Arterial Blood Base Excess -3.9 mmol/L (-2.0-3.0) Arterial Blood Oxyhemoglobin 93.5 % (94.0-98.0) Arterial Blood Carboxyhemoglobin 1.3 % (0.5-1.5) Arterial Blood Methemoglobin 0.3 % (0.0-1.5) Arterial Blood Deoxyhemoglobin 4.9 % (0.0-5.0) Jarrod Test Yes Blood Gas Total Hemoglobin 13.00 g/dL (13.5-17.5) Blood Gas Set Respiration Rate 27.0 Blood Gas Modality Mask - bipap FiO2 % 50.0 Blood Gas EPAP 5 Blood Gas IPAP 14 Lactic Acid Level 1.1 mmol/L (0.4-2.0) Test 06/20/25 03:15 06/20/25 02:06 06/20/25 00:43 06/20/25 00:17 Urine Color Light-yellow (Yellow) Urine Clarity Clear (Clear) Urine pH 5.0 (5.0-9.0) Urine Specific [place] 1.024 (1.001-1.035) Urine Protein Negative (Negative) Urine Ketones Trace (Negative) Urine Blood Negative /uL (Negative) Urine Nitrite Negative (Negative) Urine Bilirubin Negative (Negative) Urine Urobilinogen Normal mg/dL (Negative) Urine Leukocyte Esterase Negative /uL (Negative) Urine RBC 1 /hpf (0 - 3) Urine Microscopic WBC < 1 /HPF (0-3) Urine Squamous Epithelial Cells Few /hpf (<5) Urine Bacteria None seen /hpf (None Seen) Urine Mucus Few (None Seen) Urine Glucose 4+ mg/dL (Normal) Urine Opiates Screen Neg (NEGATIVE) Urine Fentanyl Screen Neg (NEGATIVE) Urine Barbiturates Screen Neg (NEGATIVE) Urine Phencyclidine Screen Neg (NEGATIVE) Urine Amphetamines Screen Neg (NEGATIVE) Urine Benzodiazepines Screen Neg (NEGATIVE) Urine Cocaine Screen Neg (NEGATIVE) Urine Cannabinoids Screen Neg (NEGATIVE) Blood Gas Critical Value Read Back Yes Blood Gas Notified Whom sienna Aaron Blood Gas Notified Time [id number] Blood Gas Notified By Vehicle Controls Engineer ermias sosa Influenza Type A Antigen Negative (Negative) Influenza Type B Antigen Negative (Negative) SARS-CoV-2 Antigen (Rapid) Negative (NEGATIVE) Troponin I High Sensitivity 13 ng/L (</=54) Test 06/19/25 22:29 06/19/25 20:47 Venous Blood pH 7.343 (7.320-7.430) Venous Blood pCO2 at Patient Temp 38.3 mmHg (38.0-54.0) Venous Blood pO2 at Patient Temp 50.0 mmHg (23.0-48.0) Venous Blood HCO3 20.3 mmol/L (22.0-29.0) Venous Blood Base Excess -4.8 mmol/L (-2.0-3.0) Prothrombin Time 11.3 sec (9.3-11.8) Prothrombin Time INR 1.07 (0.9-1.15) Activated Partial Thromboplast Time 30.5 SEC (24.5-34.5) Hemoglobin A1c 8.0 % A1C (<5.7) Magnesium Level 1.9 mg/dL (1.6-2.6) B-Type Natriuretic Peptide 33.59 pg/mL (0-100) Other Laboratory Tests 06/22/25 04:40 Brief Hx & Hospital Course: Sy Youssef is a 74-year-old gentleman with past medical history of hypertension, diabetes type 2, COPD on 3 L of oxygen at home, diastolic heart failure came to the hospital due to progressively worsening shortness of breaths since 1 weeks. He denied chest pain, nausea, vomiting, fever, or any recent sick contacts/travel history. Upon hospital arrival, the patient was in severe shortness of breaths, could not improved with the oxygen through nasal cannula so was put on BiPAP. Labs revealed leukocytosis, acidosis, hyperglycemia and elevated creatinine levels, chest x-ray revealed pulmonary venous congestion. CT chest showed ground-glass opacities bilaterally with enlarged mediastinal lymph nodes. he was treated with antibiotics, insulin, nebulizations and steroids. During the course of the hospitalization, the shortness of breath decreased. Patient was able to be taken off the BiPAP and put on 2 Lmin oxygen with no distress , hence being discharged with home oxygen. Physical examination at discharge on the day of discharge: General Appearance: Alert, Oriented X3, Cooperative, No acute distress HEENT: Atraumatic, PERRLA, EOMI, Mucous membrane moist/pink Respiratory: chest clear, no rhonchi or wheeze heard Cardiovascular: Regular rate, Normal S1, Normal S2, No murmurs, no chest wall tenderness Abdominal: Normal bowel sounds, Soft, No tenderness, No hepatosplenomegaly, No masses Extremities: No clubbing, No cyanosis, No edema, Normal pulses, No tenderness/swelling Skin: No rashes, No breakdown, No significant lesion Neuro: Normal gait, Normal speech, Strength at 5/5 X4 ext, Normal tone, Sensation intact, Cranial nerves 3-12 NL, Reflexes 2+ Psych/Mental Status: Mental status NL, Mood NL Discussed with Dr. Jaime Condition at Discharge: Fair Final Diagnosis/Problems List Acute on chronic hypoxic/hypercarbic respiratory failure Sepsis, due to above Acute COPD exacerbation Pneumonia, likely due to Gram-positive/Gram-negative bacteria Diabetes type 2 with hyperglycemia Essential Hypertension CKD stage 3A Possible acute on chronic diastolic heart failure Discharge Disposition: Home (With home oxygen; the patient's will provide transportation with home oxygen therapy) Discharge Instruct/Medications Diet: Cardiac 2g Na,low cholest Activity: No Restrictions, As Tolerated Follow Up/Referral: F/u with PCP in 7 days F/u with DC clinic in 7 days 3 month follow-up CT chest to exclude underlying neoplasm Medications: as per EHR Scheduled Amoxicillin & Pot Clavulanate (Augmentin Tablet), 875 MG PO BID Aspirin (Aspirin Low Dose), 81 MG PO DAILY Atorvastatin Calcium (Atorvastatin Calcium), 20 MG PO HS Azithromycin (Azithromycin), 500 MG PO DAILY Aqkgyazpczz-Mfxrkvhqmxng-Ajhav (Trelegy Ellipta 200-62.5-25 Mcg/INH), 1 AER IN BID Furosemide (Lasix), 1 TAB PO DAILY Glipizide (Glipizide), 10 MG PO BID, (Reported) Metformin Hydrochloride (Metformin Hcl), 500 MG PO BIDWM, (Reported) Prednisone (Prednisone), 40 MG PO DAILY Sitagliptin Phosphate (Januvia), 100 MG PO DAILY, (Reported) Discontinued Medications Levofloxacin Hemihydrate (Levaquin 500 Mg), 1 TAB PO DAILY Discharge Statement: "Patient was advised to return to the ER or call 911 if any headaches, dizziness, shortness of breath, chest pain, abdominal pain, bleeding, fevers, or worsening of medical condition. Patient was counseled about treatment plan, medications, possible side effects, patientverbalized understanding. All questions were answered to the best of my ability. This discharge took greater then 30 minutes in planning, reviewing documentation, counseling the patient, and discussing with other team members." ASSESSMENT ASSESSMENT Assessment COPD exacerbation Date of Service: Jun 22, 2025 Billing Provider: MAX JAIME MD Common Visit Codes: 87447-[id number] DISCH DAY >30min LAINEY DELAROSA Jun 22, 2025 15:14 MAX JAIME MD Jun 23, 2025 13:17
[2025-06-23] MEDS ORDERED: ASPirin-EC 81 mg tab PO SCH (10:00)
== END 2025-06-22 12:45 | disposition home or self-care (01) | DRG 871 ==
LOC: EDBD 20:46 → EDUNIT# 20:46 → ER 20:46 → OVERFLOW 06-20 00:04 → TELE-EAST 06-20 00:05
PROVIDERS: ATTEND Emergency Medicine
PROC: 5A09357 Assistance with Respiratory Ventilation, Less than 24 Consecutive Hours, Continuous Positive Airway Pressure (ICD-10-PCS; principal; 2025-06-19)
PROC: 5A09357 Assistance with Respiratory Ventilation, Less than 24 Consecutive Hours, Continuous Positive Airway Pressure (ICD-10-PCS; 2025-06-20)
DX: A41.9 Sepsis, unspecified organism (principal); I50.33 Acute on chronic diastolic (congestive) heart failure; J15.69 Pneumonia due to other Gram-negative bacteria; J96.22 Acute and chronic respiratory failure with hypercapnia; J96.21 Acute and chronic respiratory failure with hypoxia; J15.9 Unspecified bacterial pneumonia; I13.0 Hypertensive heart and chronic kidney disease with heart failure and stage 1 through stage 4 chronic kidney disease, or unspecified chronic kidney disease; J44.0 Chronic obstructive pulmonary disease with (acute) lower respiratory infection; E11.22 Type 2 diabetes mellitus with diabetic chronic kidney disease; N18.30 Chronic kidney disease, stage 3 unspecified; J44.1 Chronic obstructive pulmonary disease with (acute) exacerbation; Z99.81 Dependence on supplemental oxygen; Z20.822 Contact with and (suspected) exposure to COVID-19; E11.65 Type 2 diabetes mellitus with hyperglycemia; J98.4 Other disorders of lung; Z90.49 Acquired absence of other specified parts of digestive tract; Z79.4 Long term (current) use of insulin
CPT/HCPCS: 36415; 36600; 71045; 71250; 80048; 80053; 80307; 81001; 82805; 82962; 83036; 83605; 83735; 83880; 84484; 85025; 85610; 85730; 87040; 87081; 87426; 87804; 93005; 93306; 94640; 94660; 96365; 99291; G0378; J1815